=== PATIENT | female | born 1990 | race Caucasian/White ===

== ENCOUNTER → 2018-01-25 11:59 | Outpatient (CLI) | payer BC, SELFPAY ==
[2018-01-25 12:51] LABS: Prolactin 27.2 ng/mL; Thyroid Stim Hormone (TSH) 2.12 uIU/mL (0.358-3.74)
[2018-01-26 08:45] LABS: Progesterone Level 3.89 ng/mL (See Comment)
[2018-01-27 08:03] LABS: HPV Reflexed? NOT INDICATED
== END ==
PROVIDERS: Visit Provider Obstetrics & Gynecology
DX: Z12.4 Encounter for screening for malignant neoplasm of cervix (principal); N92.6 Irregular menstruation, unspecified
CPT/HCPCS: 36415; 84144; 84146; 84443; 88175; G0145

== ENCOUNTER → 2018-02-27 09:01 | Outpatient (CLI) | payer BC, SELFPAY ==
[2018-02-28 08:42] LABS: Progesterone Level 30.51 ng/mL (See Comment)
== END ==
PROVIDERS: Visit Provider Obstetrics & Gynecology
DX: N97.9 Female infertility, unspecified (principal)
CPT/HCPCS: 36415; 84144

== ENCOUNTER → 2018-03-23 16:15 | Outpatient (CLI) | payer BC, SELFPAY ==
[2018-03-23 19:11] LABS: Chlamydia Trachomatis by PCR Negative (Negative); Neisserai gonorrhoeae by PCR Negative (Negative); Probe Check PASS; Sample Adequacy Control PASS; Specimen Processing Control PASS
== END ==
PROVIDERS: Visit Provider Obstetrics & Gynecology
DX: Z11.3 Encounter for screening for infections with a predominantly sexual mode of transmission (principal)
CPT/HCPCS: 87491; 87591

== ENCOUNTER → 2018-04-05 10:07 | Outpatient (CLI) | payer BC, SELFPAY ==
[2018-04-05 10:39] LABS: Color, Urine Yellow (Yellow); Glucose, Dipstick Normal (Normal); Ketone-Dipstick Negative (Negative); Leukocyte Esterase-Dipstick 25 /ul (Negative); Nitrite-Dipstick Negative (Negative); Occult Blood-Urine Negative /ul (Negative); Protein-Dipstick 15 mg/dl (Negative); Urine Bilirubin Dipstick Negative (Negative); Urine Clarity Sl. Cloudy (Clear); Urine Urobilinogen Normal (Normal)
[2018-04-05 11:13] LABS: Amphetamine Urine VISTA NEGATIVE (<1000 ng/mL); Barbiturate Urine VISTA NEGATIVE (< 200 ng/mL); Benzodiazepine Urine VISTA NEGATIVE (< 200 ng/mL); Cocaine Urine VISTA NEGATIVE (< 300 ng/mL); Ecstacy Urine VISTA NEGATIVE (< 500 ng/mL); Methadone Urine VISTA NEGATIVE (< 300 ng/mL); PCP Urine VISTA NEGATIVE (< 25 ng/mL); THC Urine VISTA NEGATIVE (< 50 ng/mL); Vista UDS pH Range 6
[2018-04-05 11:42] LABS: Absolute Lymphocyte Count 1.64 X10^3/ul (0.83-4.51); Absolute Neutrophil Count 5.1 X10^3/uL (2.0-7.7); Basophil# 0.01 X10^3/uL; Basophil% 0.1 % (0-1); Eosinophil# 0.02 X10^3/uL; Eosinophils% 0.3 % (0-5); Hematocrit 36.8 % (37-47); Hemoglobin 12.2 g/dl (12.0-15.0); Lymphocyte # 1.64 X10^3/ul (4.0); Lymphocyte % 23.6 % (19-41); Mean Corp Hgb Conc 33.2 g/gl (32-36); Mean Corpuscular Hgb 27.8 pg (27.0-32.0); Mean Corpuscular Volume 83.8 fL (81-99); Mean Platelet Vol. 9.8 fl (6.2-12.0); Monocyte# 0.24 X10^3/uL; Monocyte% 3.4 % (0-10); Neutrophil # 5.05 X10^3/uL (2.7-7.7); Neutrophil % 72.6 % (47-70); Platelet Count 287 K/mm3 (150-450); RBC Distribution Width CV 12.4 % (11.6-14.6); RBC Distribution Width SD 37.8 fl (35.1-43.9); Red Blood Count 4.39 M/mm3 (4.2-5.4)
[2018-04-05 11:51] LABS: POSITIVE COUNT NO; POSITIVE DIFFERENTIAL NO; POSITIVE MORPHOLOGY NO
[2018-04-05 12:21] LABS: Thyroid Stim Hormone (TSH) 2.07 uIU/mL (0.358-3.74)
[2018-04-06 03:42] LABS: Prenatal RPR NONREACTIVE (NONREACTIVE)
[2018-04-06 11:30] LABS: HEPATITIS B SURFACE AG Negative (Negative); Hep C Antibodies <0.1 s/co ratio (0.0-0.9)
[2018-04-06 12:32] LABS: HIV - WCH Non-Reactive (Nonreactive); Rubella IgG 40.6 IU/mL
== END ==
PROVIDERS: Visit Provider Obstetrics & Gynecology
DX: Z34.81 Encounter for supervision of other normal pregnancy, first trimester (principal)
CPT/HCPCS: 36415; 80307; 81002; 84443; 85025; 86703; 86762; 86803; 87340

== ENCOUNTER → 2018-06-27 10:07 | Outpatient (CLI) | payer BC, SELFPAY ==
[2018-06-27 10:53] LABS: Hematocrit 33.5 % (37-47); Hemoglobin 11.3 g/dl (12.0-15.0); Mean Corp Hgb Conc 33.7 g/gl (32-36); Mean Corpuscular Hgb 28.1 pg (27.0-32.0); Mean Corpuscular Volume 83.3 fL (81-99); Mean Platelet Vol. 9.2 fl (6.2-12.0); Platelet Count 259 K/mm3 (150-450); RBC Distribution Width CV 13.3 % (11.6-14.6); RBC Distribution Width SD 40.5 fl (35.1-43.9); Red Blood Count 4.02 M/mm3 (4.2-5.4); White Blood Count 7.5 K/mm3 (4.4-11.0)
[2018-06-27 11:00] LABS: Scan Indicated on CBC? Y/N NO
[2018-06-27 11:09] LABS: International Normalized Ratio 1.1; Prothrombin Time (Protime)PT. 13.7 SECONDS (11.7-14.9)
[2018-06-27 11:16] LABS: AST(SGOT) 17 U/L (15-37); Alanine Aminotransfer ALT/SGPT 35 U/L (13-56); Creatinine, Serum 0.58 mg/dL (0.55-1.02); EST Glomerular Filtration Rate 131 mL/min (>60); Est Glom Filt Rate - Afr Amer 159 mL/min (>60); Uric Acid 3.2 mg/dL (2.6-6.0)
--- OUTSIDE RECORDS SUMMARY | 2018-08-22 18:34 | XMS RPT_ITS ---
:1990 Author Organization OHIP Care Team Providers Name Role Phone Afshin Aviles Attending Unavailable Afshin Aviles Attending Unavailable Afshin Aviles Attending Unavailable Afshin Aviles Attending Unavailable Kaylee Hood Attending Unavailable Kaylee Hood Attending Unavailable PROBLEMS PROBLEMS DATE TYPE CONDITION / CODE ATTENDING STATUS SOURCE 06/29/2018 Unknown Z34.82 - Encounter Kaylee Hood Anshul Wright for supervision of Community other normal Hospital , second Repository trimester / Z34.82(ICD-10) 04/05/2018 Unknown Z34.81 - Encounter Afshin Aviles Anshul Wright for supervision of Community other normal Hospital , first Repository trimester / Z34.81(ICD-10) 03/23/2018 Unknown Z11.3 - Encounter SinaderekAfshin for screening for Community infections with a Hospital predominantly Repository sexual mode of transmission / Z11.3(ICD-10) 02/27/2018 Unknown 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, Community unspecified / Hospital N97.9(ICD-10) Repository 01/25/2018 Unknown N92.6 - Irregular SinaderekAfshin menstruation, Community unspecified / Hospital N92.6(ICD-10) Repository 01/25/2018 Unknown Z12.4 - Encounter Afshin Aviles for screening for Community malignant neoplasm Hospital of cervix / Repository Z12.4(ICD-10) PROCEDURES PROCEDURES No Procedure Records FoundRESULTS RESULTS PROTEIN, URINE 24HR Collected: 06/29/2018 Status: F Source: ADRIANA 8:05 AM [facility] REPOSITORY TYPE CODE TESTS RESULT OUT OF RANGE REFERENCE UNITS LAB L501.1850 24.0 HOURS Normal UR COLLECT 24.0 TIME LAB L501.1875 mL Normal UR TOTAL 925 VOLUME LAB L501.1900 <11.9 mg/dL Normal URINE PROTEIN 8.5 LAB L501.1925 <150 MG/24HR mg/24HR Normal 24hr UR 78.6 PROTEIN Performed By: #### L500.9000 #### [facility] [place], [address] CBC-COMPLETE BLOOD CNT Collected: 06/27/2018 Status: F Source: ADRIANA NO DIFF 10:17 AM [facility] REPOSITORY TYPE CODE TESTS RESULT OUT OF RANGE REFERENCE UNITS LAB L100.1000 4.4-11.0 K/mm3 Normal WBC 7.5 LAB L100.1200 4.2-5.4 M/mm3 Low RBC 4.02 LAB L100.1300 12.0-15.0 g/dl Low HGB 11.3 LAB L100.1400 37-47 % Low HCT 33.5 LAB L100.1500 81-99 fL Normal MCV 83.3 LAB L100.1600 27.0-32.0 pg Normal MCH 28.1 LAB L100.1700 32-36 g/gl Normal MCHC 33.7 LAB L100.1810 11.6-14.6 % Normal RDW CV 13.3 LAB L100.1820 35.1-43.9 fl Normal RDW SD 40.5 LAB L100.1900 150-450 K/mm3 Normal PLT 259 LAB L100.2000 6.2-12.0 fl Normal MPV 9.2 Performed By: #### L100.0500 #### [facility] [address] [facility] [place], [place], [address] PROTHROMBIN TIME W/INR Collected: 06/27/2018 Status: F Source: [place] 10:17 AM [facility] REPOSITORY TYPE CODE TESTS RESULT OUT OF RANGE REFERENCE UNITS LAB L300.4150 11.7-14.9 SECONDS Normal PROTIME 13.7 LAB L300.4200 Normal INR 1.1 Performed By: #### L300.3900, L300.4310 #### [facility] [address] [place], [place], [address] PARTIAL THROMBOPLAST Collected: 06/27/2018 Status: F Source: [place] TIME 10:17 AM [facility] REPOSITORY TYPE CODE TESTS RESULT OUT OF RANGE REFERENCE UNITS LAB L300.4310 24.1-36.2 Seconds Normal PTT 29.0 Performed By: #### L300.3900, L300.4310 #### [facility] [address] [place], [address] SERUM CREATININE AND Collected: 06/27/2018 Status: F Source: [place] GFR 10:17 AM [facility] REPOSITORY TYPE CODE TESTS RESULT OUT OF RANGE REFERENCE UNITS LAB L501.1100 0.55-1.02 mg/dL Normal 0.58 CREAT,SERUM Result Comment: The validity of the calculated GFR AND GFRAA in patients over 70 years has not been determined. Clinical correlation is essential. LAB L501.1110 >60 mL/min Normal EST GFR 131 Result Comment: Non- GFR Calc LAB L501.1115 >60 mL/min Normal EST GFR - AA 159 Result Comment: GFR Calc Performed By: #### L501.1105, L501.1400, L501.4100, L501.4405 #### [facility] [address] [place], [address] URIC ACID Collected: 06/27/2018 Status: F Source: ADIRANA 10:17 AM [facility] REPOSITORY TYPE CODE TESTS RESULT OUT OF RANGE REFERENCE UNITS LAB L501.1400 2.6-6.0 mg/dL Normal URIC 3.2 Result Comment: The drugs N-Acetylcysteine and Metamizole may falsely depress this assay. Performed By: #### L501.1105, L501.1400, L501.4100, L501.4405 #### [facility] [address] [place], [address] AST(SGOT) Collected: 06/27/2018 Status: F Source: ADRIANA 10:17 AM [facility] REPOSITORY TYPE CODE TESTS RESULT OUT OF RANGE REFERENCE UNITS LAB L501.4100 15-37 U/L Normal AST 17 Performed By: #### L501.1105, L501.1400, L501.4100, L501.4405 #### [facility] [address] [place], [address] ALANINE AMINOTRANSFERAS Collected: 06/27/2018 Status: F Source: ADRIANA (SGPT) 10:17 AM [facility] REPOSITORY TYPE CODE TESTS RESULT OUT OF RANGE REFERENCE UNITS LAB L501.4405 13-56 U/L Normal ALT 35 Performed By: #### L501.1105, L501.1400, L501.4100, L501.4405 #### [facility] [address] [place], [address] URINE DRUG SCREEN Collected: 04/05/2018 Status: F Source: ADRIANA (VISTA) 10:09 AM [facility] REPOSITORY Order Comment: List of Drugs Taken or Suspected? UNK TYPE CODE TESTS RESULT OUT OF RANGE REFERENCE UNITS LAB L505.0075 TO BE Normal CONFIRMED Result Comment: CONFIRMATORY TESTING FOR ALL POSITIVE URINE DRUG SCREEN RESULTS WILL ONLY BE SENT OUT UPON PHYSICIAN ORDER. VISTA Urine Drug Screen methods provide only preliminary analytical test results. A more specific alternate chemical method must be used in order to obtain a confirmed analytical result. Gas chromatography/mass spectrometery (GC/MS) is the preferred confirmatory method. Clinical consideration and professional judgement should be applied to any drug of abuse test result, particularly when preliminary positive results are used. URINE TCA TESTING MUST BE ORDERED SEPARATELY. USE TEST MNEMONIC: [facility]CA LAB L505.5005 VISTA UDS PH 6 Normal LAB L505.5015 <1000 ng/mL AMPHETAMINES Normal NEGATIVE LAB L505.5025 < 200 ng/mL BARBITIURATES Normal NEGATIVE LAB L505.5035 < 200 ng/mL BENZODIAZIPINE Normal NEGATIVE LAB L505.5045 < 300 ng/mL COCAINE Normal NEGATIVE LAB L505.5055 < 500 ng/mL ECSTACY Normal NEGATIVE LAB L505.5065 < 300 ng/mL METHADONE Normal NEGATIVE LAB L505.5075 < 300 ng/mL OPIATES Normal NEGATIVE LAB L505.5085 < 25 ng/mL PCP Normal NEGATIVE LAB L505.5095 < 50 ng/mL THC Normal NEGATIVE Performed By: #### L505.5000 #### [facility] [place], [address] URINALYSIS, ROUTINE Collected: 04/05/2018 Status: F Source: ADRIANA (DIPSTICK) 10:09 AM [facility] REPOSITORY Order Comment: How was Urine Obtained? CLEAN CATCH TYPE CODE TESTS RESULT OUT OF RANGE REFERENCE UNITS LAB L400.3000 Yellow COLOR Normal Yellow LAB L400.3050 Clear Normal CLARITY Sl. Cloudy LAB L400.3200 Normal mg/dl Normal GLUCOSE, UR Normal LAB L400.3300 Negative mg/dL Normal BILIRUBIN URINE Negative LAB L400.3400 Negative mg/dl Normal KETONE UR Negative LAB L400.3465 1.002-1.030 Normal SP.GR. DIPSTX 1.020 LAB L400.3550 5.0 - 8.0 pH UR Normal 6.0 LAB L400.3600 Negative mg/dl High PROT 15 DIPSTX LAB L400.3700 Normal mg/dl Normal UROBILI Normal LAB L400.3750 Negative Normal NITRITE UR Negative LAB L400.3780 Negative /ul Normal OCCULT BLOOD-UR Negative LAB L400.3800 Negative /ul High LEUK 25 ESTERASE Performed By: #### L400.2010 #### [facility] [address] [place], [address] CBC W/DIFF, AUTOMATED Collected: 04/05/2018 Status: F Source: [place] 10:09 AM [facility] REPOSITORY TYPE CODE TESTS RESULT OUT OF RANGE REFERENCE UNITS LAB L100.1000 4.4-11.0 K/mm3 Normal WBC 7.0 LAB L100.1200 4.2-5.4 M/mm3 Normal RBC 4.39 LAB L100.1300 12.0-15.0 g/dl Normal HGB 12.2 LAB L100.1400 37-47 % Low HCT 36.8 LAB L100.1500 81-99 fL Normal MCV 83.8 LAB L100.1600 27.0-32.0 pg Normal MCH 27.8 LAB L100.1700 32-36 g/gl Normal MCHC 33.2 LAB L100.1810 11.6-14.6 % Normal RDW CV 12.4 LAB L100.1820 35.1-43.9 fl Normal RDW SD 37.8 LAB L100.1900 150-450 K/mm3 Normal PLT 287 LAB L100.2000 6.2-12.0 fl Normal MPV 9.8 LAB L100.2100 47-70 % High NEUT% 72.6 LAB L100.2200 19-41 % Normal LY% 23.6 LAB L100.2300 0-10 % Normal MONO% 3.4 LAB L100.2400 0-5 % Normal EO% 0.3 LAB L100.2500 0-1 % Normal BASO% 0.1 LAB L100.2550 0.0-0.9 % Normal IM GRAN % 0.000 Result Comment: IG% - Immature Granulocytes (promyelocytes, myelocytes and metamyelocytes) > 1% indicates that a LEFT SHIFT is Present. LAB L100.2620 2.0-7.7 X10 3/uL Normal Absolute Neut 5.1 LAB L100.2720 0.83-4.51 X10 3/ul Normal Absolute Lymph 1.64 Performed By: #### L100.0100 #### [facility] [address] [place], [address] THYROID STIM HORMONE Collected: 04/05/2018 Status: F Source: ADRIANA (TSH) 10:09 AM [facility] REPOSITORY TYPE CODE TESTS RESULT OUT OF RANGE REFERENCE UNITS LAB L501.9520 0.358-3.74 uIU/mL Normal TSH 2.07 Performed By: #### L501.9520 #### [facility] [address] [place] [address] [place], [address] T AND S-NO Collected: 04/05/2018 Status: F Source: ADRIANA CHARGE W/PNP 10:09 AM [facility] REPOSITORY Order Comment: Reason for Type AND Screen/Red Cells: Surgery? N TYPE CODE TESTS RESULT OUT OF RANGE REFERENCE UNITS LAB B10.0800 A Normal BLOOD POSITIVE TYPE GEL LAB B100.4050 Normal Ab SCREEN NEGATIVE GEL Performed By: #### B100.7550 #### [facility] [address] [place] [address], [address] RPR Collected: 04/05/2018 Status: F Source: ADRIANA 10:09 AM [facility] REPOSITORY TYPE CODE TESTS RESULT OUT OF REFERENCE UNITS RANGE LAB L700.5100 NONREACTIVE Normal RPR NONREACTIVE Performed By: #### L700.5100 #### [facility] [address] [place], [place] [address]C[place], [address] HEPATITIS B SURFACE Collected: 04/05/2018 Status: F Source: ADRIANA AG 10:09 AM [facility] REPOSITORY TYPE CODE TESTS RESULT OUT OF RANGE REFERENCE UNITS LAB L3100.0400 Negative Normal HB Negative SURF AG Result Comment: Performed at: - [facility], [place], [place] [id number] Helmet Hat Sweatband Puncher: William Davison PhD, Phone: [phone] Performed By: #### L3100.0390, L3100.0625 #### [facility] (refer to report for specific site) refer to report for address and phone number HEPATITIS C ANTIBODIES Collected: 04/05/2018 Status: F Source: ADRIANA 10:09 AM [facility] REPOSITORY TYPE CODE TESTS RESULT OUT OF RANGE REFERENCE UNITS LAB L3100.0650 0.0-0.9 s/co ratio Normal HEP C AB <0.1 Result Comment: Negative: < 0.8 Indeterminate: 0.8 - 0.9 Positive: > 0.9 The CDC recommends that a positive HCV antibody result be followed up with a HCV Nucleic Acid Amplification test (682156). Performed By: #### L3100.0390, L3100.0625 #### [facility] (refer to report for specific site) refer to report for address and phone number RUBELLA IGG Collected: 04/05/2018 Status: F Source: ADRIANA 10:09 AM [facility] REPOSITORY TYPE CODE TESTS RESULT OUT OF RANGE REFERENCE UNITS LAB L509.4000 IU/mL Normal Rubella IgG 40.6 Result Comment: Antibody results Interpretation of Immune Status < 5 IU/ml Presumed Non-immune 5 - < 10 IU/ml Equivocal > or = 10 IU/ml Presumed Immune Performed By: #### L509.4000, L3890.6005 #### [facility] [address] [place], [address] HIV - W[facility] Collected: 04/05/2018 Status: F Source: ADRIANA 10:09 AM [facility] REPOSITORY TYPE CODE TESTS RESULT OUT OF RANGE REFERENCE UNITS LAB L3890.6005 Nonreactive Normal HIV - [facility] Non-Reactive Performed By: #### L509.4000, L3890.6005 #### [facility] [address] [place], [address] CT/NG W[facility] BY PCR Collected: 03/23/2018 Status: F Source: ADRIANA 2:30 PM [facility] REPOSITORY TYPE CODE TESTS RESULT OUT OF RANGE REFERENCE UNITS LAB L8200.2100 Negative Normal Chlam Negative Trac PCR LAB L8200.2200 Negative Normal NG by Negative PCR Performed By: #### L8200.2000 #### [facility] [address] [place], [address] PROGESTERONE LEVEL Collected: 02/27/2018 Status: F Source: ADRIANA 9:08 AM [facility] REPOSITORY Order Comment: TODAY IS CYCLE . TYPE CODE TESTS RESULT OUT OF REFERENCE UNITS RANGE LAB L509.4001 See Comment ng/mL Progesterone Normal 30.51 Result Comment: Progesterone Reference Table: UNITS Female: Follicular 0.15 - 1.40 ng/mL Luteal 3.34 - 25.56 ng/mL Mid-luteal 4.44 - 28.03 ng/mL Postmenopausal 0.0 - 0.73 ng/mL : 1st Trimester 11.22 - 90.00 ng/mL 2nd Trimester 25.55 - 89.40 ng/mL 3rd Trimester 48.40 -422.50 ng/mL Performed By: #### L509.4001 #### [facility] [address] [facility] [place], [address] THYROID STIM HORMONE Collected: 01/25/2018 Status: F Source: [place] (TSH) 12:04 PM [facility] REPOSITORY TYPE CODE TESTS RESULT OUT OF RANGE REFERENCE UNITS LAB L501.9520 0.358-3.74 uIU/mL Normal TSH 2.12 Performed By: #### L501.9520, L3100.5420 #### [facility] [address] [facility] [facility] [address] PROLACTIN Collected: 01/25/2018 Status: F Source: [place] 12:04 PM [facility] REPOSITORY TYPE CODE TESTS RESULT OUT OF RANGE REFERENCE UNITS LAB L3100.5420 ng/mL Normal PROLACTIN 27.2 Result Comment: NORMAL REFERENCE RANGES FEMALE NON- 2.2 - 30.3 ng/mL 8.1 - 347.6 ng/mL POST-MENOPAUSAL 0.7 - 31.5 ng/mL MALE 2.5 - 17.4 ng/mL NEW TEST METHOD AND REFERENCE RANGES DECEMBER 19, 2011 Performed By: #### L501.9520, L3100.5420 #### [facility] [address] [place], [address] PROGESTERONE LEVEL Collected: 01/25/2018 Status: F Source: [place] 12:04 PM [facility] REPOSITORY TYPE CODE TESTS RESULT OUT OF REFERENCE UNITS RANGE LAB L509.4001 See Comment ng/mL Progesterone Normal 3.89 Result Comment: Progesterone Reference Table: UNITS Female: Follicular 0.15 - 1.40 ng/mL Luteal 3.34 - 25.56 ng/mL Mid-luteal 4.44 - 28.03 ng/mL Postmenopausal 0.0 - 0.73 ng/mL : 1st Trimester 11.22 - 90.00 ng/mL 2nd Trimester 25.55 - 89.40 ng/mL 3rd Trimester 48.40 -422.50 ng/mL Performed By: #### L509.4001 #### [facility] [address] [place], [place], [address] PAP IG W/REFLEX HR Collected: 01/25/2018 Status: F Source: [place]RIANA HPV APTIMA 11:30 AM [facility] REPOSITORY Order Comment: CYTOLOGY INFORMATION: - CLINICAL INFORMATION: - DATE LMP/MENOPAUSE: LMP - COLLECTION VIAL: Thin Prep Vial - PLASTERER SPRAY GUN SOURCE: CERVICAL/ENDOCERVICAL - COLLECTION TECHNIQUE: BRUSH/SPATULA Specimen Comment: [id number] Specimen Comment: No. of containers..01 ThinPrep Vial TYPE CODE TESTS RESULT OUT OF RANGE REFERENCE UNITS LAB L7400.0800 . Normal DIAGN Comment Result Comment: NEGATIVE FOR INTRAEPITHELIAL LESION AND MALIGNANCY. LAB L7400.0900 . Normal ADEQ Comment Result Comment: Satisfactory for evaluation. Endocervical and/or squamous metaplastic cells (endocervical component) are present. LAB L7400.1400 . Normal PERFORM Comment Result Comment: Claudy Balbuena, Analysis Intern (ASCP) LAB L7400.2575 . Normal TEST METHOD Comment Result Comment: This liquid based ThinPrep(R) pap test was screened with the use of an image guided system. LAB L7400.2600 . Normal . COMM LAB L7400.2700 . Normal PAPSMR Comment Result Comment: The Pap smear is a screening test designed to aid in the detection of premalignant and malignant conditions of the uterine cervix. It is not a diagnostic procedure and should not be used as the sole means of detecting cervical cancer. Both false-positive and false-negative reports do occur. LAB L7400.2800 . Normal HPV RFLX Comment Result Comment: The HPV DNA reflex criteria were not met with this specimen result therefore, no HPV testing was performed. Performed at: [address] [id number] Helmet Hat Sweatband Puncher: Nuria David MD, Phone: [phone] Performed By: #### L1100.0039 #### [facility] (refer to report for specific site) refer to report for address and phone number ALLERGIES ALLERGIES No Allergies Records FoundENCOUNTERS ENCOUNTERS ADMIT/DISCHARGE ACCOUNT ADMITTING ENCOUNTER LOCATION SOURCE NUMBER CLASS 06/29/2018 [id number] [facility] [place] [facility] 5 [facility] ing:[facility] Repository 06/27/2018 [id number] [facility] [place] [facility] 8 [facility] ing:WOBLAB Repository 04/05/2018 [id number] [facility] [place] 0 [facility] ing:WOBLAB Repository 03/23/2018 [id number] Ambulatory [facility] 0 [facility] ing:[facility] Repository 02/27/2018 [id number] [facility] [place] [facility] 0 [facility] ing:WOBLAB Repository 01/25/2018 [id number] Ambulatory [facility] Adri[facility] 5 [facility] ing:WOBLAB Repository PAYERS PAYERS ENCOUNTER GUARANTOR PAYER SUBSCRIBER SOURCE 06/29/2018 MARIO Stone Primary YULIANA A Adriana [id number] [facility] Insurance:ANTHE[place] Number: [facility] [address]Nyy: 330 [id number] Repository [phone] () denis Date:[id number] [address] [place] [address] 25778VI: 06/29/2018 Secondary NOT GIVENUNK Adriana Insurance:SELF PAY [facility] Number: Effective Repository Date:2018-06-29 06/27/2018 MARIO Stone Primary YULIANA A [place] [id number] [facility] [place] Number: [facility] [address]Khj: 330 [id number] Repository [phone] () denis Date:[id number] [address] [place] [address]94[address]CK: 06/27/2018 Secondary NOT GIVENUNK Adriana Insurance:SELF PAY [facility] Number: Effective Repository Date:2018-06-27 04/05/2018 MARIO Stone Primary YULIANA A Adriana [id number] [place] Insurance:ANTHEMPolic [place] Number: Hospital [address]Btz: (330) [id number] Repository [phone] () denis Date:1918-44-34XH [address] [place] [address] 15691MF: 04/05/2018 Secondary NOT GIVENUNK Adriana Insurance:SELF PAY [facility] Effective Repository Date:2018-04-05 03/23/2018 MARIO N Primary YULIANA A [place] [id number] [place] Insurance:ANTHE[place]olic [place] Number: Hospital [id number]: (330) [id number] Repository [phone] () denis Date:8094-97-87IZ [id number] [place] [address] 22319BA: 03/23/2018 Secondary NOT GIVENUNK [place] Insurance:SELF PAY [facility] Hospital Number: Effective Repository Date:2018-03-23 02/27/2018 MARIO N Primary YULIANA Adriana [id number] [place] Insurance:ANTHE[employer]olic [place] Number: Hospital [id number]: (330) [id number] Repository [phone] () denis Date:6796-95-09PR [id number] [place] [address] 04244RS: 02/27/2018 Secondary NOT GIVENUNK [place] Insurance:SELF PAY [facility] Number: Effective Repository Date:2018-02-27 01/25/2018 MARIO N Primary YULIANA [place] [id number] [place] Insurance:ANTHE[employer]olic [place] Number: Hospital [address]Eyc: (330) [id number] Repository [phone] () ednis Date:5485-61-77PF [id number] [place] [address] 11480SE: 01/25/2018 Secondary NOT GIVENUNK [place] Insurance:SELF PAY [facility] Hospital Number: Effective Repository Date:2018-01-25
== END ==
PROVIDERS: Visit Provider Obstetrics & Gynecology
DX: O13.9 Gestational [pregnancy-induced] hypertension without significant proteinuria, unspecified trimester (principal)
CPT/HCPCS: 36415; 82565; 84450; 84460; 84550; 85027; 85610; 85730

== ENCOUNTER → 2018-06-29 08:44 | Outpatient (CLI) | payer BC, SELFPAY ==
[2018-06-29 09:14] LABS: 24 Hour Urine Protein 78.6 mg/24HR (<150 MG/24HR); 24HR. UA Prot. Total Volume 925 mL; Urine Protein (24 Hour) 8.5 mg/dL (<11.9)
--- OUTSIDE RECORDS SUMMARY | 2018-08-24 03:30 | XMS RPT_ITS ---
:1990 Author Organization OHIP Care Team Providers Name Role Phone Afshin Aviles Attending Unavailable Kaylee Hood Attending Unavailable Kaylee Hood Attending Unavailable Afshin Aviles Attending Unavailable Afshin Aviles Attending Unavailable Afshin Aviles Attending Unavailable PROBLEMS PROBLEMS DATE TYPE CONDITION [...] 06/29/2018 Status: F Source: ADRIANA 8:05 AM [facility] REPOSITORY TYPE CODE TESTS RESULT OUT OF RANGE REFERENCE UNITS LAB L501.1850 24.0 HOURS Normal UR COLLECT 24.0 TIME LAB L501.1875 mL Normal UR TOTAL 925 VOLUME LAB L501.1900 <11.9 mg/dL Normal URINE PROTEIN 8.5 LAB L501.1925 <150 MG/24HR mg/24HR Normal 24hr UR 78.6 PROTEIN Performed By: #### L500.9000 #### [facility] [place], [address] CBC-COMPLETE BLOOD CNT Collected: 06/27/2018 Status: F Source: ADRIANA NO DIFF 10:17 AM [facility] REPOSITORY TYPE CODE TESTS RESULT OUT OF [...] MPV 9.2 Performed By: #### L100.0500 #### [facility] [address] [facility] [place], [place], [id number] PROTHROMBIN TIME W/INR Collected: 06/27/2018 Status: F Source: HOMEWORTH 10:17 AM [facility] REPOSITORY TYPE CODE TESTS RESULT OUT OF RANGE REFERENCE UNITS LAB L300.4150 11.7-14.9 SECONDS Normal PROTIME 13.7 LAB L300.4200 Normal INR 1.1 Performed By: #### L300.3900, L300.4310 #### [facility] [address] [place], [place], [id number] PARTIAL THROMBOPLAST Collected: 06/27/2018 Status: F Source: HOMEWORTH TIME 10:17 AM [facility] REPOSITORY TYPE CODE TESTS RESULT OUT OF RANGE REFERENCE UNITS LAB L300.4310 24.1-36.2 Seconds Normal PTT 29.0 Performed By: #### L300.3900, L300.4310 #### [facility] [address] [facility] [place], [address] SERUM CREATININE AND Collected: 06/27/2018 Status: F Source: HOMEWORTH GFR 10:17 AM [facility] REPOSITORY TYPE CODE TESTS RESULT OUT OF [...] By: #### L501.1105, L501.1400, L501.4100, L501.4405 #### [facility] [address] [place], [address] URIC ACID Collected: 06/27/2018 Status: F Source: ADRIANA 10:17 AM [facility] REPOSITORY TYPE CODE TESTS RESULT OUT OF RANGE REFERENCE UNITS LAB L501.1400 2.6-6.0 mg/dL Normal URIC 3.2 Result Comment: The drugs N-Acetylcysteine and Metamizole may falsely depress this assay. Performed By: #### L501.1105, L501.1400, L501.4100, L501.4405 #### [facility] [address] [place], [address] AST(SGOT) Collected: 06/27/2018 Status: F Source: ADRIANA 10:17 AM [facility] REPOSITORY TYPE CODE TESTS RESULT OUT OF RANGE REFERENCE UNITS LAB L501.4100 15-37 U/L Normal AST 17 Performed By: #### L501.1105, L501.1400, L501.4100, L501.4405 #### [facility] [address] [place], [address] ALANINE AMINOTRANSFERAS Collected: 06/27/2018 Status: F Source: ADRIANA (SGPT) 10:17 AM [facility] REPOSITORY TYPE CODE TESTS RESULT OUT OF RANGE REFERENCE UNITS LAB L501.4405 13-56 U/L Normal ALT 35 Performed By: #### L501.1105, L501.1400, L501.4100, L501.4405 #### [facility] [address] [place], [address] URINE DRUG SCREEN Collected: 04/05/2018 Status: F Source: ADRIANA (VISTA) 10:09 AM [facility] REPOSITORY Order Comment: List of Drugs Taken [...] Normal NEGATIVE Performed By: #### L505.5000 #### [facility] [place], [address] URINALYSIS, ROUTINE Collected: 04/05/2018 Status: F Source: ADRIANA (DIPSTICK) 10:09 AM [facility] REPOSITORY Order Comment: How was Urine Obtained? [...] 25 ESTERASE Performed By: #### L400.2010 #### [facility] [address] [place], [address] CBC W/DIFF, AUTOMATED Collected: 04/05/2018 Status: F Source: HOMEWORTH 10:09 AM [facility] REPOSITORY TYPE CODE TESTS RESULT OUT OF [...] Lymph 1.64 Performed By: #### L100.0100 #### [facility] [address] [place], [address] THYROID STIM HORMONE Collected: 04/05/2018 Status: F Source: ADRIANA (TSH) 10:09 AM [facility] REPOSITORY TYPE CODE TESTS RESULT OUT OF RANGE REFERENCE UNITS LAB L501.9520 0.358-3.74 uIU/mL Normal TSH 2.07 Performed By: #### L501.9520 #### [facility] [address] [place] [address] [place], [address] T AND S-NO Collected: 04/05/2018 Status: F Source: ADRIANA CHARGE W/PNP 10:09 AM [facility] REPOSITORY Order Comment: Reason for Type AND Screen/Red Cells: Surgery? N TYPE CODE TESTS RESULT OUT OF RANGE REFERENCE UNITS LAB B10.0800 A Normal BLOOD POSITIVE TYPE GEL LAB B100.4050 Normal Ab SCREEN NEGATIVE GEL Performed By: #### B100.7550 #### [facility] [address] [place] [address], [address] RPR Collected: 04/05/2018 Status: F Source: ADRIANA 10:09 AM [facility] REPOSITORY TYPE CODE TESTS RESULT OUT OF REFERENCE UNITS RANGE LAB L700.5100 NONREACTIVE Normal RPR NONREACTIVE Performed By: #### L700.5100 #### [facility] [address] [place], [place] [address], [address] HEPATITIS B SURFACE Collected: 04/05/2018 Status: F Source: ADRIANA AG 10:09 AM [facility] REPOSITORY TYPE CODE TESTS RESULT OUT OF RANGE REFERENCE UNITS LAB L3100.0400 Negative Normal HB Negative SURF AG Result Comment: Performed at: - [facility], [place], [place] [id number] Is Manager: William Davison PhD, Phone: [phone] Performed By: #### L3100.0390, L3100.0625 #### [facility] (refer to report for specific site) refer to report for address and phone number HEPATITIS C ANTIBODIES Collected: 04/05/2018 Status: F Source: ADRIAAN 10:09 AM [facility] REPOSITORY TYPE CODE TESTS RESULT OUT OF RANGE REFERENCE UNITS LAB L3100.0650 0.0-0.9 s/co ratio Normal HEP C AB <0.1 Result Comment: Negative: < 0.8 Indeterminate: 0.8 - 0.9 Positive: > 0.9 The CDC recommends that a positive HCV antibody result be followed up with a HCV Nucleic Acid Amplification test (394451). Performed By: #### L3100.0390, L3100.0625 #### [facility] (refer to report for specific site) refer to report for address and phone number RUBELLA IGG Collected: 04/05/2018 Status: F Source: ADRIANA 10:09 AM [facility] REPOSITORY TYPE CODE TESTS RESULT OUT OF RANGE REFERENCE UNITS LAB L509.4000 IU/mL Normal Rubella IgG 40.6 Result Comment: Antibody results Interpretation of Immune Status < 5 IU/ml Presumed Non-immune 5 - < 10 IU/ml Equivocal > or = 10 IU/ml Presumed Immune Performed By: #### L509.4000, L3890.6005 #### [facility] [address] [place], [address] HIV - [facility] Collected: 04/05/2018 Status: F Source: ADRIANA 10:09 AM [facility] REPOSITORY TYPE CODE TESTS RESULT OUT OF RANGE REFERENCE UNITS LAB L3890.6005 Nonreactive Normal HIV - [facility] Non-Reactive Performed By: #### L509.4000, L3890.6005 #### [facility] [address] [place], [address] CT/NG [facility] BY PCR Collected: 03/23/2018 Status: F Source: ADRIANA 2:30 PM [facility] REPOSITORY TYPE CODE TESTS RESULT OUT OF RANGE REFERENCE UNITS LAB L8200.2100 Negative Normal Chlam Negative Trac PCR LAB L8200.2200 Negative Normal NG by Negative PCR Performed By: #### L8200.2000 #### [facility] [address] [facility] [facility] [place], [address] PROGESTERONE LEVEL Collected: 02/27/2018 Status: F Source: ADRIANA 9:08 AM [facility] REPOSITORY Order Comment: TODAY IS CYCLE . [...] -422.50 ng/mL Performed By: #### L509.4001 #### [facility] [address] [facility] [place], [address] THYROID STIM HORMONE Collected: 01/25/2018 Status: F Source: HOMEWORTH (TSH) 12:04 PM [facility] REPOSITORY TYPE CODE TESTS RESULT OUT OF RANGE REFERENCE UNITS LAB L501.9520 0.358-3.74 uIU/mL Normal TSH 2.12 Performed By: #### L501.9520, L3100.5420 #### [facility] [address] [facility] [facility] [address] PROLACTIN Collected: 01/25/2018 Status: F Source: HOMEWORTH 12:04 PM [facility] REPOSITORY TYPE CODE TESTS RESULT OUT OF RANGE REFERENCE UNITS LAB L3100.5420 ng/mL Normal PROLACTIN 27.2 Result Comment: NORMAL REFERENCE RANGES FEMALE NON- 2.2 - 30.3 ng/mL 8.1 - 347.6 ng/mL POST-MENOPAUSAL 0.7 - 31.5 ng/mL MALE 2.5 - 17.4 ng/mL NEW TEST METHOD AND REFERENCE RANGES DECEMBER 19, 2011 Performed By: #### L501.9520, L3100.5420 #### [facility] [address] [place], [address] PROGESTERONE LEVEL Collected: 01/25/2018 Status: F Source: HOMEWORTH 12:04 PM [facility] REPOSITORY TYPE CODE TESTS RESULT OUT OF [...] -422.50 ng/mL Performed By: #### L509.4001 #### [facility] [address] [place], [place], [address] PAP IG W/REFLEX HR Collected: 01/25/2018 Status: F Source: ADRIANA HPV APTIMA 11:30 AM [facility] REPOSITORY Order Comment: CYTOLOGY INFORMATION: - CLINICAL INFORMATION: - DATE LMP/MENOPAUSE: LMP - COLLECTION VIAL: Thin Prep Vial - SENIOR WATER/WASTEWATER ENGINEER SOURCE: CERVICAL/ENDOCERVICAL - COLLECTION TECHNIQUE: BRUSH/SPATULA Specimen Comment: [id number] Specimen Comment: No. of containers..01 ThinPrep Vial TYPE CODE TESTS RESULT OUT OF RANGE REFERENCE UNITS LAB L7400.0800 . Normal DIAGN Comment Result Comment: NEGATIVE FOR INTRAEPITHELIAL LESION AND MALIGNANCY. LAB L7400.0900 . Normal ADEQ Comment Result Comment: Satisfactory for evaluation. Endocervical and/or squamous metaplastic cells (endocervical component) are present. LAB L7400.1400 . Normal PERFORM Comment Result Comment: Claudy Balbuena, Oil Gas And Pipe Tester (ASCP) LAB L7400.2575 . Normal TEST METHOD [...] no HPV testing was performed. Performed at: [address] [id number] Is Manager: Nuria David MD, Phone: [phone] Performed By: #### L0000.3558 #### [facility] (refer to report for specific site) refer to report for address and phone number ALLERGIES ALLERGIES No Allergies Records FoundENCOUNTERS ENCOUNTERS ADMIT/DISCHARGE ACCOUNT ADMITTING ENCOUNTER LOCATION SOURCE NUMBER CLASS 06/29/2018 [id number] Ambulatory [place] Adriana 5 [facility] ing:LABSPEC Repository 06/27/2018 [id number] Ambulatory [place] Adriana 8 [facility] ing:WOBLAB Repository 04/05/2018 [id number] Ambulatory [place] Adriana 0 [facility] ing:WOBLAB Repository 03/23/2018 [id number] Ambulatory [place] Adriana 0 [facility] ing:LABSPEC Repository 02/27/2018 [id number] Ambulatory [place] Adriana 0 [facility] ing:WOBLAB Repository 01/25/2018 [id number] Ambulatory [place] Adriana 5 [facility] ing:WOBLAB Repository PAYERS PAYERS ENCOUNTER GUARANTOR PAYER SUBSCRIBER SOURCE 06/29/2018 MARIO Stone Primary YULIANA A Adriana [id number] [facility] Insurance:[place] Number: [facility] [address]Loi: 330 [id number] Repository [phone] () denis Date:2433-14-59QQ [address] [place] [address]YU: 06/29/2018 Secondary NOT GIVENUNK Adriana Insurance:SELF PAY [facility] Number: Effective Repository Date:2018-06-29 06/27/2018 MARIO Stone Primary YULIANA A [place] [id number] [facility] [place] Number: [facility] [address]Pmu: 330 [id number] Repository [phone] () denis Date:8809-89-62OJ [address] [place] [address] 25182IY: 06/27/2018 Secondary NOT GIVENUNK Adriana Insurance:SELF PAY [facility] Number: Effective Repository Date:2018-06-27 04/05/2018 MARIO Stone Primary YULIANA A [place] [id number] Insurance:ANTHEMPolic [place] Number: Hospital [id number]: (330) [id number] Repository [phone] () denis Date:8691-65-90NJ [address] [place] [address] 716[address]HL: 04/05/2018 Secondary NOT GIVENUNK Adriana Insurance:SELF PAY [facility] Number: Effective Repository Date:2018-04-05 03/23/2018 MARIO N Primary YULIANA A [place] [id number] Insurance:ANTHEMPolic [place] Number: Hospital [id number]: (330) [id number] Repository [phone] () denis Date:7533-59-56MY [id number] [place] [address]FT: 03/23/2018 Secondary NOT GIVENUNK [place] Insurance:SELF PAY [facility] Number: Effective Repository Date:2018-03-23 02/27/2018 MARIO N Primary YULIANA Adri[place] [id number] Insurance:ANTHEMPolic [place] Number: Hospital [id number]: (330) [id number] Repository [phone] () denis Date:9122-76-99JR [id number] [place] [address] 53[address]EZ: 02/27/2018 Secondary NOT GIVENUNK [place] Insurance:SELF PAY [facility] Number: Effective Repository Date:2018-02-27 01/25/2018 MARIO N Primary YULIANA [place] [id number] Insurance:ANTHEMPolic [place] Number: Hospital [id number]: (330) [id number] Repository [phone] () denis Date:8505-02-52VL [id number] [place] [address] 14683XN: 01/25/2018 Secondary NOT GIVENUNK [place] Insurance:SELF PAY [facility] Number: Effective Repository Date:2018-01-25
== END ==
PROVIDERS: Visit Provider Obstetrics & Gynecology
DX: Z34.82 Encounter for supervision of other normal pregnancy, second trimester (principal)
CPT/HCPCS: 81050; 84156

== ENCOUNTER → 2018-08-23 10:31 | Outpatient (CLI) | payer BC, SELFPAY ==
[2018-08-23 13:03] LABS: Hematocrit 34.3 % (37-47); Hemoglobin 11.4 g/dl (12.0-15.0); Mean Corp Hgb Conc 33.2 g/gl (32-36); Mean Corpuscular Hgb 28.8 pg (27.0-32.0); Mean Corpuscular Volume 86.6 fL (81-99); Platelet Count 282 K/mm3 (150-450); RBC Distribution Width SD 40.1 fl (35.1-43.9); Red Blood Count 3.96 M/mm3 (4.2-5.4); White Blood Count 7.5 K/mm3 (4.4-11.0)
[2018-08-23 13:05] LABS: Scan Indicated on CBC? Y/N NO
[2018-08-23 13:10] LABS: Glucose Challenge Gest 1H 50g 97 mg/dL (70-140)
== END ==
PROVIDERS: Visit Provider Obstetrics & Gynecology
DX: Z34.83 Encounter for supervision of other normal pregnancy, third trimester (principal)
CPT/HCPCS: 36415; 82950; 85027

== ENCOUNTER → 2018-10-17 11:14 | Outpatient (CLI) | payer BC, SELFPAY | PROVIDERS: Visit Provider Obstetrics & Gynecology | DX: Z36.85 Encounter for antenatal screening for Streptococcus B (principal) | CPT/HCPCS: 87077; 87081; 87186 ==

== ENCOUNTER → 2018-11-02 | Outpatient (CLI) | payer BC, SELFPAY ==
[2018-11-02 10:33] LABS: Hemoglobin 11.7 g/dl (12.0-15.0); Mean Corp Hgb Conc 32.5 g/gl (32-36); Mean Corpuscular Hgb 27.4 pg (27.0-32.0); Mean Corpuscular Volume 84.3 fL (81-99); Mean Platelet Vol. 9.4 fl (6.2-12.0); Platelet Count 219 K/mm3 (150-450); RBC Distribution Width CV 13.2 % (11.6-14.6); RBC Distribution Width SD 40.2 fl (35.1-43.9); Red Blood Count 4.27 M/mm3 (4.2-5.4); White Blood Count 7.1 K/mm3 (4.4-11.0)
[2018-11-02 10:34] LABS: Scan Indicated on CBC? Y/N NO
[2018-11-02 10:44] LABS: Color, Urine Yellow (Yellow); Glucose, Dipstick Normal (Normal); Ketone-Dipstick 5 mg/dl (Negative); Leukocyte Esterase-Dipstick 25 /ul (Negative); Nitrite-Dipstick Negative (Negative); Occult Blood-Urine 10 /ul (Negative); Protein-Dipstick 30 mg/dl (Negative); Urine Bilirubin Dipstick Negative (Negative); Urine Clarity Sl. Cloudy (Clear); Urine Urobilinogen Normal (Normal)
[2018-11-02 10:49] LABS: International Normalized Ratio 0.9; Prothrombin Time (Protime)PT. 12.2 SECONDS (11.7-14.9)
[2018-11-02 10:50] LABS: Partial Thromboplast Time 26.1 Seconds (24.1-36.2)
[2018-11-02 10:58] LABS: AST(SGOT) 31 U/L (15-37); Alanine Aminotransfer ALT/SGPT 44 U/L (13-56); Creatinine, Serum 0.86 mg/dL (0.55-1.02); EST Glomerular Filtration Rate 82 mL/min (>60); Est Glom Filt Rate - Afr Amer 99 mL/min (>60); Uric Acid 6.2 mg/dL (2.6-6.0)
== END | disposition home or self-care (01) ==
LOC: WOBLAB 10:16
PROVIDERS: Visit Provider Obstetrics & Gynecology
DX: O13.9 Gestational [pregnancy-induced] hypertension without significant proteinuria, unspecified trimester (principal)
CPT/HCPCS: 36415; 81002; 82565; 84450; 84460; 84550; 85027; 85610; 85730

== ENCOUNTER 2018-11-05 16:00 | Inpatient (IN) | payer BC, SELFPAY ==
[2018-11-05] VITALS (16 sets, daily range): BP systolic 116–179; BP diastolic 50–106; PULSE 70–88; RESP 16–24; TEMP 36.1–37.6; O2SAT 97–100; BMI 42.0
[2018-11-05] MEDS: Lactated Ringers 1,000 ML 999 ML IV (16:30)
[2018-11-05 17:15] LABS: Absolute Lymphocyte Count 2.36 X10^3/ul (0.83-4.51); Absolute Neutrophil Count 6.8 X10^3/uL (2.0-7.7); Basophil# 0.02 X10^3/uL; Basophil% 0.2 % (0-1); Eosinophil# 0.07 X10^3/uL; Eosinophils% 0.7 % (0-5); Hematocrit 34.6 % (37-47); Hemoglobin 11.5 g/dl (12.0-15.0); Lymphocyte # 2.36 X10^3/ul (4.0); Mean Corp Hgb Conc 33.2 g/gl (32-36); Mean Corpuscular Hgb 27.5 pg (27.0-32.0); Mean Corpuscular Volume 82.8 fL (81-99); Mean Platelet Vol. 9.7 fl (6.2-12.0); Monocyte# 0.51 X10^3/uL; Monocyte% 5.2 % (0-10); Neutrophil # 6.84 X10^3/uL (2.7-7.7); Neutrophil % 69.6 % (47-70); Platelet Count 233 K/mm3 (150-450); RBC Distribution Width CV 13.2 % (11.6-14.6); RBC Distribution Width SD 39.6 fl (35.1-43.9); Red Blood Count 4.18 M/mm3 (4.2-5.4); White Blood Count 9.8 K/mm3 (4.4-11.0)
[2018-11-05 17:17] LABS: POSITIVE COUNT NO; POSITIVE DIFFERENTIAL NO; POSITIVE MORPHOLOGY NO
[2018-11-05] MEDS: Magnesium Sulfate 20 GM/500 ML BAG IV (17:20)
[2018-11-05] MEDS: Lactated Ringers 1,000 ML 150 ML IV (17:23)
[2018-11-05] MEDS: Sodium Citrate/Citric Acid 30 ML UDC PO (17:24)
[2018-11-05 17:25] LABS: Prothrombin Time (Protime)PT. 12.5 SECONDS (11.7-14.9)
[2018-11-05 17:29] LABS: Mucous, Urine 0 SEEN /hpf (<or=2+); Red Blood Cells-Urine 0 SEEN /hpf (0-5)
[2018-11-05] MEDS: Lactated Ringers 1,000 ML 100 ML IV (17:30)
[2018-11-05 17:32] LABS: AST(SGOT) 22 U/L (15-37); Alanine Aminotransfer ALT/SGPT 32 U/L (13-56); Creatinine, Serum 0.83 mg/dL (0.55-1.02); EST Glomerular Filtration Rate 86 mL/min (>60); Est Glom Filt Rate - Afr Amer 104 mL/min (>60); Estimated Creatinine Clearance 86.36 ml/min; Uric Acid 6.2 mg/dL (2.6-6.0)
[2018-11-05] MEDS: Cefazolin 2 GM in 0.9% Normal Saline 100 ML IV (17:44)
--- NOTE | 2018-11-05 17:55 | PLAC_PTH ---
PATIENT: MARIO MOREIRA LOC: WP U#:[id number] AGE/SX: 28/F ROOM: WP013 RE11/05/[address]: Dr. Dick Aviles MD : 1990 BED: 1 DIS: 11/07/2018 SPEC #: [id number] RECD: 11/05/18 21:51 STATUS: VALORIE WAGNER #: [id number] YONI: 11/05/18 17:[address]: Dick Aviles DEPT: SURGICAL PATHOLOGY RECD BY: Sung Gay Tissues: Placenta, NOS Procedures: Surgery Specimen Level V HEADER OPERATION: Primary section PRE-OP DIAGNOSIS: Preeclampsia TISSUE SUBMITTED: Placenta MICROSCOPIC DIAGNOSIS Placenta: Placental disc - third trimester placenta (359 gm). - Multiple areas of infarction (~10) with focal area of intraparenchymal hemorrhage and calcification (largest measuring 4 cm in greatest dimension). - Focal area of plaque formation, maternal surface with focal calcification. - Chronic villitis of unknown etiology. Membranes - pigment laden macrophages consistent with meconium staining. - Focal circummarginate insertion. Umbilical cord - three blood vessels and no pathologic diagnosis. SJ:diamond 11/08/18 MICROSCOPIC DESCRIPTION Slides are reviewed. GROSS DESCRIPTION SPECIMEN: PLACENTA / CLINICAL INFORMATION: A. Weight: 2.286 kg B. Gestational Age: 38 weeks C. Sex: Male PLACENTAL WEIGHT (POST FIXATION): 359 gm PLACENTAL DIMENSIONS: 15 x 14 x 3 cm PLACENTAL SHAPE: Usual ovoid PLACENTAL WEIGHT FOR GESTATIONAL AGE: Within 10-99th percentile MEMBRANES - Present A. Insertion: In one-fourth of placenta, the membranes are inserted 1 cm away from the margin. B. Site of rupture from edge: At edge of placental disc C. Color of membrane: Stanley-more D. Abnormalities: None UMBILICAL CORD - Present A. Color: Stanley-greenish and mucoidy consistent with meconium staining B. Insertion: Central C. Length: 28 cm D. Diameter: 1.2 cm E. Number of vessels: Three F. Abnormalities: None PLACENTAL DISC - Present A. Color of surface: Stanley-more B. surface abnormalities: None C. Maternal cotyledons: Intact with minimal tears D. Attached retro placental clot: No clot E. Cut surface: Dark red and spongy F. Lesions: Sections of the placenta reveal multiple (~10) stanley, indurated lesions. The largest lesion measures 4 x 4 x 1.5 cm and the second largest lesion measures 4 x 3 x 1.5 cm. The smallest lesion measures 0.3 cm in greatest dimension. G. Separate clot: Absent SECTIONS SUBMITTED: (10 cassettes) 1. Membrane roll 2. Cord, maternal end 3. Cord, end, insertion of membrane away from the margin 4. Placental disc, and maternal surfaces, lesion 5. Placental disc, and maternal surfaces, lesion 6. Placental disc, and maternal surfaces, lesion 7. Placental disc, and maternal surfaces, lesion 8. Placental disc, two lesions 9. Placental disc, two lesions 10. Placental disc, and maternal surfaces, lesion SJ:rg 11/07/18 TC:5 CPT: 00786
[2018-11-05 18:00] LABS: Color, Urine Yellow (Yellow); Glucose, Dipstick Normal (Normal); Ketone-Dipstick Negative (Negative); Leukocyte Esterase-Dipstick 25 /ul (Negative); Nitrite-Dipstick Negative (Negative); Occult Blood-Urine Negative /ul (Negative); Protein-Dipstick 30 mg/dl (Negative); Specific Gravity, Urine 1.015 (1.002-1.030); Urine Bilirubin Dipstick Negative (Negative); Urine Clarity Clear (Clear); Urine Urobilinogen Normal (Normal)
[2018-11-05] MEDS: Ketorolac 30 MG/ML Syringe IV (18:34)
--- NOTE | 2018-11-05 18:47 | OP.PCM_ITS ---
Delivery Classification: BANDAR Final VANCE: 11/13/18 Final VANCE Source: US <20 weeks Gestational age: 38 Weeks and 6 Days doctor who attended delivery (if requested by OB): Kelli Otero Indications for : Nonreassuring Status, Severe PIH, Unfav. Cervix Description of Procedure: Surgeon: Dick Aviles MD, FACOG Outside Installer Apprentice: MAXIM Maki Anesthesia: Jeb Talbot CRNA Anesthesia: Spinal with Duramorph Pre-op Diagnosis: Severe -Induced Hypertension, Nonreassuring Heart Tones, Uninducible Cervix Post-Op Diagnosis: Severe -Induced Hypertension, Nonreassuring Heart Tones, Uninducible Cervix Procedure: Primary Low Transverse Cervical Caesarean Section Findings: Viable male infant with Apgars of 8/8 in an occiput anterior presentation with clear amniotic fluid and normal three-vessel placenta; meconium stained baby and membranes; cord around neck and body loose; placenta adherent to uterus and extremely friable. Indication: This is a 28-year-old who presents for her first at 38+ weeks gestation. care has been uneventful for elevated blood pressure for which she has been on labetalol during most of the . Over the last 1-2 weeks the patient has been on modified bedrest for labile blood pressures and we have followed blood pressures closely and PIH labs closely as well. Upon presentation to the office today she was noted to have blood pressures in the 160/100 range and occasionally to the 200/130 range. Cervix was closed and thick and high. Given this, and some difficulty controlling pressures with the hypertensive protocol upon presentation to labor and delivery, and some spontaneous decelerations noted on heart tracing, it was decided to proceed with immediate section. Magnesium sulfate was also started upon presentation to labor and delivery. The patient has been counseled regarding the risk and indications of this procedure including the possibility of bleeding infection and injury to surrounding structures such as bowel bladder. All questions were answered. Procedure: Patient was taken to the operating room where after spinal anesthesia was placed, the patient was prepped and draped in usual sterile fashion and a Anthony catheter was placed. The abdomen was entered through a Pfannenstiel incision and peritoneum was entered bluntly. After developing a bladder flap on the lower uterine segment a low transverse incision was made on the uterus and head was easily delivered onto the operative field the nose mouth and oropharynx were bulb suctioned. Subsequently a viable male infant was born with Apgars of 8/8. The infant was noted to cry move all extremities vigorously on the operative field. The umbilical cord was doubly clamped and ligated and infant handed to the nursery personnel who were present for the delivery. Placenta was delivered and noted to be 3 vessels and normal except for being meconium stained. Uterus was exteriorized and remaining placental tissue was removed manually and with ring forceps and a banjo curette. The uterus was then closed in 2 layers first with running locked 0 Vicryl suture followed by a second imbricating layer with 0 Vicryl suture. 0 Vicryl suture was then used in a horizontal mattress interrupted fashion to affect final hemostasis of the uterine incision line. Normal fallopian tubes and ovaries were visualized and the uterus was returned to the pelvis. Hemostasis was noted and rectus abdominis muscles were reapproximated in the midline with interrupted Number 0 Vicryl suture in a horizontal mattress fashion. Fascia was closed with running Number 1 PDS Strata fix suture. After changing gloves subcutaneous tissue was irrigated with copious amouts of saline solution and then closed with running 3- 0 Vicryl suture. Skin was closed with 4-0 monocryl suture in a running subcuticular fashion. Steri strips, telfa, and tape were placed across the incision. The patient tolerated the procedure well and was taken to the recovery room in satisfactory condition. Sponge, needle, and instrument counts were all reportedly correct. EBL was less than 500 cc. Ancef 2 gms IV was given prior to the procedure. Spicemen to Pathology: Placenta Amniotic Fluid Description: Clear Placenta Disposition: Sent to Pathology - Meconium Stained Drain: Anthony to straight drain Fluids Replaced: Crystalloid Cord Entanglement: Around neck x 1, loose Cord Vessel Description: 3 Vessels Esitmated Blood Loss (ml): 500 cc Infant Gender: Male (1 minute): 8 (5 minute): 8 Pre-op Antibiotic Given: Ancef 2 grams IV x1 Pt instructed on risks of surgery: Bleeding, Infection, Need for Future C- Sections, Injury to surrounding structure(s) including bowel and bladder Complications: None - Admit VTE Documentation VTE Present on Admission: Yes VTE Mechan Device Prophylaxis: SCD's
[2018-11-05] MEDS: Oxytocin 30 units/NS 500 ml 30 UNITS/500 ML IV.SOLN 167 UNITS IV (18:55)
[2018-11-05] MEDS: Oxytocin 30 units/NS 500 ml 30 UNITS/500 ML IV.SOLN 334 UNITS IV (18:55)
--- NOTE | 2018-11-05 18:59 | DCINST_ITS ---
Discharge Diet: No Restrictions Discharge Activity: May not drive while taking narcotic pain medications., May Shower, May Take a Tub Bath May resume sexual activity in: 4-6 weeks Lifting Restrictions: 20 pounds Additional Activity Instructions:: Nothing in the vagina for 4-6 weeks. You may return to work/school in 6 weeks. Call your doctor if your incision/area has: Continuous Slow Oozing, Sudden Increased Bleeding, Increased Pain/ Swelling, Increased Redness, Foul Smelling Discharge Call your doctor if you observe: Fever of 101 or Higher, Inability to urinate, Inability to have a bowel movement, Using more than one pad per hour Additional Instructions: If you experience any of the following, contact your healthcare provider. * Bleeding that soaks a pad every hour for 2 hours * Unrelieved incision or abdominal pain * Swelling, redness, discharge or bleeding from your incision or episiotomy site * Your incision begins to separate * Problems urinating (including inability to urinate or burning while urinating). * Visual changes * Severe headache * Flu-like symptoms * Pain or redness in one of both of your breasts * Pain, warmth, tenderness or swelling in your legs, especially the calf area * Frequent nausea and vomiting * Symptoms of depression or anxiety If you experience any of the following, call 911 or go to the nearest Emergency Room. * Chest pain * Problems breathing * Seizure activity * Partial or complete paralysis of a body part, slurred speech, weakness or drooping of the face, or a sudden inability to walk or hold your balance Allergies/Adverse Reactions: Allergies amoxicillin Allergy (Verified 11/05/18 16:20) Rash Medications to take at Discharge Docusate Sodium [Colace] 100 mg PO BID PRN PRN #60 cap 11/05/18 Fluoxetine [Prozac] 20 mg PO DAILY 11/05/18 Labetalol [Trandate (Beta Erich)] 11/05/18 Oxycodone [Oxyir] 5 mg PO Q6H PRN PRN 7 Days #20 tab 11/05/18 Pnv No.95/Ferrous Fum/Folic AC [ Caplet] 1 each PO 11/05/18 The following prescriptions were given: Oxycodone [Oxyir] 5 mg PO Q6H PRN PRN 7 Days #20 tab PRN Reason: Severe Pain (-05/09) Docusate Sodium [Colace] 100 mg PO BID PRN PRN #60 cap PRN Reason: Constipation Follow-Up: Call to make an appointment with your doctor for an incision check in 1-2 weeks. You will also need a 6 week post- follow up appointment. Test results from this visit will be discussed in further detail at your follow- up appointment, if applicable. Please Follow Up With: Dick Aviles MD - [phone] When: Call to make an appointment for an incision check in 2 weeks.
[2018-11-05 19:09] LABS: Squamous Epithelial Cells - UA 0-5 SEEN /hpf (5-10)
[2018-11-05 19:10] LABS: Bacteria 2+ /hpf (None Seen); White Blood Cells 0-5 SEEN /hpf (0-5)
--- NOTE | 2018-11-05 19:51 | NURSING ---
late note: magnesium sulfate checks from [id number] were incomplete on BP's, RR, HR, SPO2 due to being under the care of Rubén cobb CRNA.
--- NOTE | 2018-11-05 21:54 | NURSING ---
See magnesium flowsheet for vital signs.
[2018-11-05 22:15] LABS: Pathology Specimen OB SEE PATHOLOGY REPORT
[2018-11-05] MEDS: Labetalol 100 MG Tablet PO (22:30)
[2018-11-06] VITALS (16 sets, daily range): BP systolic 103–138; BP diastolic 54–78; PULSE 69–90; RESP 16–20; TEMP 35.8–36.6; O2SAT 97–99
[2018-11-06] MEDS: Ketorolac 30 MG/ML Syringe IV ×5 (00:13→23:55)
[2018-11-06] MEDS: Lactated Ringers 1,000 ML 100 ML IV (01:34)
[2018-11-06] MEDS: Cefazolin 1 GM/50 ML BAG IV ×2 (01:34→10:21)
[2018-11-06] MEDS: Magnesium Sulfate 20 GM/500 ML BAG IV (02:31)
[2018-11-06 06:13] LABS: Hematocrit 29.5 % (37-47); Hemoglobin 9.7 g/dl (12.0-15.0); Mean Corp Hgb Conc 32.9 g/gl (32-36); Mean Corpuscular Hgb 27.5 pg (27.0-32.0); Mean Corpuscular Volume 83.6 fL (81-99); Platelet Count 210 K/mm3 (150-450); RBC Distribution Width CV 13.3 % (11.6-14.6); RBC Distribution Width SD 38.8 fl (35.1-43.9); Red Blood Count 3.53 M/mm3 (4.2-5.4); White Blood Count 12.7 K/mm3 (4.4-11.0)
[2018-11-06 06:21] LABS: Scan Indicated on CBC? Y/N NO
--- NOTE | 2018-11-06 08:32 | PCM.PN.OB ---
Subjective: Patient without complaints. Tolerating diet well. Denies any PIH symptoms. Minimal vaginal bleeding. - Physical Exam Vital Signs Temp Pulse Resp BP Pulse Ox 96.5 F L 69 18 103/57 L 98 11/06/18 07:40 11/06/18 07:40 11/06/18 07:40 11/06/18 07:40 11/06/18 07:40 Oxygen Delivery Method Room Air Weight: 245 lb Body Mass Index (BMI) 42.0 Intake and Output for Last 24 Hours 11/04/18 11/05/18 11/06/18 23:59 23:59 23:59 Intake Total 3702 / 3702 1233 / 1233 Output Total 580 / 580 335 / 335 Balance 3122 / 3122 898 / 898 Laboratory Tests Past 24 Hrs 11/05/18 11/05/18 11/05/18 16:30 16:30 16:30 WBC 9.8 RBC 4.18 L Hgb 11.5 L Hct 34.6 L MCV 82.8 MCH 27.5 MCHC 33.2 RDW 13.2 RDW Differential 39.6 Plt Count 233 MPV 9.7 Immature Gran % (Auto) 0.300 Neut % (Auto) 69.6 Lymph % (Auto) 24.0 [place] % (Auto) 5.2 Eos % (Auto) 0.7 Baso % (Auto) 0.2 Absolute Neuts (auto) 6.8 Absolute Lymphs (auto) 2.36 Total Counted Not Reportable PT 12.5 INR 1.0 APTT 28.0 Creatinine Estim Creat Clear Calc Est GFR (MDRD) Af Amer Est GFR (MDRD) Non-Af Uric Acid AST ALT Urine Color Urine Clarity Urine pH Ur Specific [place] Urine Protein Urine Glucose (UA) Urine Ketones Urine Occult Blood Urine Nitrite Urine Bilirubin Urine Urobilinogen Ur Leukocyte Esterase Urine RBC Urine WBC Ur Squamous Epith Cells Urine Bacteria Urine Mucus Blood Type A POSITIVE Antibody Screen NEGATIVE 11/05/18 11/05/18 11/06/18 16:30 17:20 05:50 WBC 12.7 H RBC 3.53 L Hgb 9.7 L Hct 29.5 L MCV 83.6 MCH 27.5 MCHC 32.9 RDW 13.3 RDW Differential 38.8 Plt Count 210 MPV 10.0 Immature Gran % (Auto) Neut % (Auto) Lymph % (Auto) [place] % (Auto) Eos % (Auto) Baso % (Auto) Absolute Neuts (auto) Absolute Lymphs (auto) Total Counted PT INR APTT Creatinine 0.83 Estim Creat Clear Calc 86.36 Est GFR (MDRD) Af Amer 104 Est GFR (MDRD) Non-Af 86 Uric Acid 6.2 H AST 22 ALT 32 Urine Color Yellow Urine Clarity Clear Urine pH 6.0 Ur Specific [place] 1.015 Urine Protein 30 H Urine Glucose (UA) Normal Urine Ketones Negative Urine Occult Blood Negative Urine Nitrite Negative Urine Bilirubin Negative Urine Urobilinogen Normal Ur Leukocyte Esterase 25 H Urine RBC 0 SEEN Urine WBC 0-5 SEEN Ur Squamous Epith Cells 0-5 SEEN Urine Bacteria 2+ Urine Mucus 0 SEEN Blood Type Antibody Screen Wound is clean, dry, intact. Good urine output. Hemoglobin okay. Blood pressure stable and normal. Medical Necessity - Tobacco Use Smoking Status: Never smoker Assessment/Plan Doing well postoperative day #1 status post primary section. Will discontinue magnesium sulfate and continue to monitor closely.
[2018-11-06] MEDS: FLUoxetine 20 MG Capsule PO (10:21)
[2018-11-06] MEDS: Senna/Docusate Sodium 1 Tablet PO (10:21)
[2018-11-06] MEDS: Labetalol 100 MG Tablet PO ×2 (10:21→22:05)
[2018-11-06] MEDS: 0.9% Saline Lock 10 ML Syringe IV ×3 (13:11→23:55)
[2018-11-06] MEDS: oxyCODONE 5 MG Tablet PO (18:11)
[2018-11-07 02:30] VITALS: BP 117/57; PULSE 71; RESP 18; TEMP 36.6; O2SAT 98
[2018-11-07] MEDS: Ketorolac 30 MG/ML Syringe IV (06:37)
[2018-11-07] MEDS: 0.9% Saline Lock 10 ML Syringe IV (06:38)
[2018-11-07 08:30] VITALS: BP 130/69; PULSE 79; RESP 17; TEMP 37; O2SAT 99
[2018-11-07] MEDS: oxyCODONE 5 MG Tablet PO (08:44)
--- NOTE | 2018-11-07 09:39 | PCM.PN.OB ---
Subjective: Patient without complaints. Tolerating diet well. Positive flatus. Denies any PIH symptoms. Wants to go home today. - Physical Exam Vital Signs Temp Pulse Resp BP Pulse Ox 98.6 F 79 17 130/69 H 99 11/07/18 08:30 11/07/18 08:30 11/07/18 08:30 11/07/18 08:30 11/07/18 08:30 Oxygen Delivery Method Room Air Weight: 245 lb Body Mass Index (BMI) 42.0 Intake and Output for Last 24 Hours 11/05/18 11/06/18 11/07/18 23:59 23:59 23:59 Intake Total 3702 / 3702 2794 / 2794 Output Total 580 / 580 1475 / 1475 Balance 3122 / 3122 1319 / 1319 Wound is clean, dry, intact. Good urine output. Blood pressures are stable on labetalol twice a day. Medical Necessity - Tobacco Use Smoking Status: Never smoker Assessment/Plan Doing well postoperative day #2 status post primary section for severe -induced hypertension. Will release to home with routine instructions. Follow-up in 2 weeks and 6 weeks. Continue labetalol at home for now.
[2018-11-07] MEDS: Labetalol 100 MG Tablet PO (10:27)
[2018-11-07] MEDS: FLUoxetine 20 MG Capsule PO (10:27)
== END 2018-11-07 11:10 | disposition home or self-care (01) | DRG 788 ==
PROVIDERS: Admitting Provider Obstetrics & Gynecology; Referring Provider Obstetrics & Gynecology; Visit Provider Obstetrics & Gynecology
DX: O76 Abnormality in fetal heart rate and rhythm complicating labor and delivery (principal); O13.3 Gestational [pregnancy-induced] hypertension without significant proteinuria, third trimester; O34.43 Maternal care for other abnormalities of cervix, third trimester; O77.0 Labor and delivery complicated by meconium in amniotic fluid; O69.81X0 Labor and delivery complicated by cord around neck, without compression, not applicable or unspecified; O69.82X0 Labor and delivery complicated by other cord entanglement, without compression, not applicable or unspecified; O99.344 Other mental disorders complicating childbirth; F41.9 Anxiety disorder, unspecified; Z3A.38 38 weeks gestation of pregnancy; Z37.0 Single live birth
CPT/HCPCS: 59025; 59050; 81001; 82565; 84450; 84460; 84550; 85025; 85027; 85610; 85730; 86850; 86900; 88307; 99218; J7120; A4216; G0378; J2405

== ENCOUNTER → 2019-05-23 15:54 | Outpatient (CLI) | payer BC, SELFPAY ==
[2018-11-05 16:07] VITALS: BMI 42.0
[2019-05-23 17:32] LABS: Absolute Lymphocyte Count 1.69 X10^3/uL (0.83-4.51); Absolute Neutrophil Count 3.7 X10^3/uL (2.0-7.7); Basophil# 0.04 X10^3/uL; Basophil% 0.7 % (0-1); Eosinophil# 0.06 X10^3/uL; Hematocrit 35.4 % (37-47); Hemoglobin 10.9 g/dL (12.0-15.0); Lymphocyte # 1.69 X10^3/ul (4.0); Lymphocyte % 29.2 % (19-41); Mean Corp Hgb Conc 30.8 g/dL (32-36); Mean Corpuscular Hgb 24.5 pg (27.0-32.0); Mean Corpuscular Volume 79.7 fL (81-99); Monocyte# 0.27 X10^3/uL; Monocyte% 4.7 % (0-10); NRBC Flagged by Analyzer 0 % (0-5); Neutrophil # 3.71 X10^3/uL (2.7-7.7); Neutrophil % 64.2 % (47-70); Platelet Count 292 K/mm3 (150-450); RBC Distribution Width CV 14.2 % (11.6-14.6); RBC Distribution Width SD 41.1 fl (35.1-43.9); Red Blood Count 4.44 M/mm3 (4.2-5.4); White Blood Count 5.8 K/mm3 (4.4-11.0)
[2019-05-23 17:53] LABS: AST(SGOT) 12 U/L (15-37); Alanine Aminotransfer ALT/SGPT 17 U/L (13-56); Albumin, Serum 3.8 g/dL (3.2-5.0); Alkaline Phosphatase 97 U/L (45-117); Anion Gap 5 (5-15); BUN 9 mg/dL (7-18); BUN/Creat Ratio 9.6 RATIO (10-20); Calcium,Total 8.3 mg/dL (8.5-10.1); Chloride 106 mmol/L (98-107); Creatinine, Serum 0.94 mg/dL (0.55-1.02); EST Glomerular Filtration Rate 75 mL/min (>60); Est Glom Filt Rate - Afr Amer 90 mL/min (>60); Globulin 3.7 g/dL (2.2-4.2); Glucose 98 mg/dL (74-106); Potassium 3.9 mmol/L (3.5-5.1); Protein, Total 7.5 g/dL (6.4-8.2); Sodium Level 138 mmol/L (136-145)
[2019-05-26 03:08] LABS: HEPATITIS B SURFACE AG Negative (Negative); Hepatitis A AB, Total Negative (Negative); Hepatitis A IgM Antibody Negative (Negative); Hepatitis B Core AB IgM Negative (Negative); Hepatitis B Core Ab Total Negative (Negative); Hepatitis C Ab <0.1 s/co ratio (0.0-0.9); QNTFERON TB Mitogen Value > 10.00 IU/mL (.); QNTFERON TB Nil Value 0.02 IU/mL (.); QNTFERON TB1+ Ag Value 0.03 IU/mL (.); QNTFERON TB2+ Ag Value 0.02 IU/mL (.)
[2019-05-27 10:36] LABS: Hep B Surface Antibodies Reactive (.); QNTIFERON TB Positive Criteria Negative (Negative)
== END ==
PROVIDERS: Referring Provider Dermatology; Visit Provider Dermatology
DX: L40.0 Psoriasis vulgaris (principal); Z79.899 Other long term (current) drug therapy
CPT/HCPCS: 36415; 80053; 85025; 86480; 86704; 86705; 86706; 86708; 86709; 86803; 87340

== ENCOUNTER → 2019-12-05 13:51 | Outpatient (CLI) | payer BC, SELFPAY ==
[2018-11-05 16:07] VITALS: BMI 42.0
[2019-12-09 03:06] LABS: QNTFERON TB Mitogen Value > 10.00 IU/mL (.); QNTFERON TB Nil Value 0.01 IU/mL (.); QNTFERON TB1+ Ag Value 0.11 IU/mL (.); QNTFERON TB2+ Ag Value 0.01 IU/mL (.)
[2019-12-09 03:09] LABS: QNTIFERON TB Positive Criteria Negative (Negative)
== END ==
PROVIDERS: Referring Provider Physician Assistant Medical; Visit Provider Physician Assistant Medical
DX: L40.0 Psoriasis vulgaris (principal); Z79.899 Other long term (current) drug therapy
CPT/HCPCS: 36415; 86480

== ENCOUNTER → 2020-11-03 14:10 | Outpatient (CLI) | payer BC, SELFPAY ==
[2018-11-05 16:07] VITALS: BMI 42.0
[2020-11-08 14:07] LABS: QNTFERON TB Mitogen Value > 10.00 IU/mL (.); QNTFERON TB Nil Value 0.04 IU/mL (.); QNTFERON TB1+ Ag Value 0.06 IU/mL (.); QNTFERON TB2+ Ag Value 0.07 IU/mL (.)
[2020-11-09 16:41] LABS: QNTIFERON TB Positive Criteria Negative (Negative)
== END ==
PROVIDERS: Referring Provider Physician Assistant Medical; Visit Provider Physician Assistant Medical
DX: L40.0 Psoriasis vulgaris (principal); Z79.899 Other long term (current) drug therapy
CPT/HCPCS: 36415; 86480

== ENCOUNTER → 2022-02-11 | Outpatient (CLI) | payer BC, SELFPAY ==
[2022-02-15 13:08] LABS: QNTFERON TB Mitogen Value > 10.00 IU/mL (.); QNTFERON TB Nil Value 0.02 IU/mL (.); QNTFERON TB1+ Ag Value 0.03 IU/mL (.); QNTFERON TB2+ Ag Value 0.03 IU/mL (.)
[2022-02-17 14:49] LABS: QNTIFERON TB Positive Criteria Negative (Negative)
== END | disposition home or self-care (01) ==
LOC: MTLAB 09:16
PROVIDERS: Referring Provider Physician Assistant Medical; Visit Provider Physician Assistant Medical
DX: L40.0 Psoriasis vulgaris (principal); Z79.899 Other long term (current) drug therapy
CPT/HCPCS: 36415; 86480

== ENCOUNTER → 2022-04-20 | Outpatient (CLI) | payer BC, SELFPAY ==
[2022-04-20 15:45] LABS: Absolute Lymphocyte Count 1.78 X10^3/uL (0.83-4.51); Absolute Neutrophil Count 6.1 X10^3/uL (2.0-7.7); Basophil# 0.02 X10^3/uL; Basophil% 0.2 % (0-1); Eosinophil# 0.07 X10^3/uL; Eosinophils% 0.8 % (0-5); Hematocrit 37.4 % (37-47); Hemoglobin 12.3 g/dL (12.0-15.0); Lymphocyte # 1.78 X10^3/ul (0.83-4.51); Lymphocyte % 21.4 % (19-41); Mean Corp Hgb Conc 32.9 g/dL (32-36); Mean Corpuscular Hgb 28.2 pg (27.0-32.0); Mean Corpuscular Volume 85.8 fL (81-99); Mean Platelet Vol. 9.9 fl (6.2-12.0); Monocyte# 0.35 X10^3/uL; Monocyte% 4.2 % (0-10); NRBC Flagged by Analyzer 0 % (0-5); Neutrophil # 6.06 X10^3/uL (2.7-7.7); Platelet Count 293 K/mm3 (150-450); RBC Distribution Width CV 11.9 % (11.6-14.6); RBC Distribution Width SD 37.1 fl (35.1-43.9); Red Blood Count 4.36 M/mm3 (4.2-5.4); White Blood Count 8.3 K/mm3 (4.4-11.0)
[2022-04-21 08:53] LABS: HIV - WCH Non-Reactive (Nonreactive); Hepatitis B Surface Antigen Non-Reactive (Nonreactive); Hepatitis C Antibody Non-Reactive (Nonreactive); Rubella IgG Reactive (Nonreactive); Syphilis Antibodies Non-reactive
[2022-04-22 19:18] LABS: V-Zoster IgG (Immunity) 2907 index (Immune >165)
[2022-04-22 22:07] LABS: Chlamydia By Nucleic Acid AMP Negative (Negative)
[2022-04-23 10:11] LABS: Gonococcus By Nucleic Acid AMP Negative (Negative)
[2022-04-29 09:11] LABS: HPV APTIMA, High Risk Negative (Negative)
== END | disposition home or self-care (01) ==
LOC: WOBLAB 14:41
PROVIDERS: Visit Provider Obstetrics & Gynecology
DX: Z34.81 Encounter for supervision of other normal pregnancy, first trimester (principal); Z12.4 Encounter for screening for malignant neoplasm of cervix; Z11.3 Encounter for screening for infections with a predominantly sexual mode of transmission
CPT/HCPCS: 36415; 85025; 86703; 86762; 86780; 86787; 86803; 87086; 87088; 87340; 87491; 87591; 87624; 88175; G0145

== ENCOUNTER → 2022-07-21 | Outpatient (CLI) | payer BC, SELFPAY ==
--- NOTE | 2022-07-21 14:28 | US_ITS ---
STUDY: SECOND AND THIRD TRIMESTER OBSTETRICAL ULTRASOUND REASON FOR EXAM: Female, 32 years old Anatomy LMP: 02/27/2022. TECHNIQUE: Transabdominal and Transvaginal TECHNICAL QUALITY: Adequate. PRIOR ULTRASOUND: None. FINDINGS: There is a single intrauterine fetus. The fetus is in a transverse lie with the head on the maternal right side. There is demonstrated cardiac activity with a heart rate of 161 bpm. There is a normal amniotic fluid volume. The largest amniotic fluid pocket measures 4 cm x 5.1 cm. The amniotic fluid index (RADHA) is within normal limits. The placenta is fundal in location. There are Grade 0 placental changes. The cervix measures 4.2 cm in length. The adnexal regions are not visualized. BIOMETRY: BPD: 5.8 cm: 23 weeks, 5 days HC: 21.43 cm: 23 weeks, 3 days AC: 18.59 cm: 23 weeks, 3 days FL: 3.88 cm: 22 weeks, 3 days CI: 77% FL/BPD: 67% FL/HC: FL/AC: 20.9% HC/AC: 1.15 age by current US: 22 weeks, 2 days. VANCE by current US: 11/15/2022. Estimated weight: 566 grams, +/- 85 grams, 99 %. Age by LMP: 21 weeks, 5 days. VANCE by LMP: 11/26/2022. ANATOMY: Gender: Female Cranium: Normal lateral ventricles. Normal choroid plexus. Normal cerebellum. Normal cisterna magna. Normal face, nose and lips. Chest: Normal 4-chamber heart. Abdomen/Pelvis: Normal diaphragm. Normal stomach. Normal abdominal wall. Normal cord insertion. Normal 3 vessel cord. Normal kidneys. Normal bladder. Spine: Normal cervical spine. Normal thoracic spine. Normal lumbar spine. Normal sacrum. Extremities: Normal bilateral upper extremities. Normal bilateral lower extremities. IMPRESSION: Single live intrauterine gestation with a mean gestational age of 22 weeks and 2 days. Electronically Signed: Sam Jack MD at 11:28 EST , STUDY: FIRST TRIMESTER OBSTETRICAL ULTRASOUND REASON FOR EXAM: Female, 32 years old . Cervical length. LMP: 02/27/2022. TECHNIQUE: Transvaginal TECHNICAL QUALITY: Adequate. PRIOR ULTRASOUND: None. FINDINGS: Cervical length measures 4.2 cm. US/OB Anatomy Scan IMPRESSION: Cervical length measures 4.2 cm. Electronically Signed: Sam Jack MD at 11:29 EST ,
== END | disposition home or self-care (01) ==
LOC: US 14:28
PROVIDERS: Referring Provider Registered Nurse; Visit Provider Registered Nurse
DX: O09.90 Supervision of high risk pregnancy, unspecified, unspecified trimester (principal); Z3A.22 22 weeks gestation of pregnancy
CPT/HCPCS: 76805; 76817

== ENCOUNTER → 2022-08-11 | Outpatient (CLI) | payer BC, SELFPAY ==
[2022-08-11 10:15] LABS: Absolute Lymphocyte Count 1.94 X10^3/uL (0.83-4.51); Absolute Neutrophil Count 4.8 X10^3/uL (2.0-7.7); Basophil# 0.01 X10^3/uL; Basophil% 0.1 % (0-1); Eosinophil# 0.05 X10^3/uL; Eosinophils% 0.7 % (0-5); Hematocrit 30.4 % (37-47); Hemoglobin 10.1 g/dL (12.0-15.0); Lymphocyte # 1.94 X10^3/ul (0.83-4.51); Lymphocyte % 27.6 % (19-41); Mean Corp Hgb Conc 33.2 g/dL (32-36); Mean Corpuscular Hgb 28.1 pg (27.0-32.0); Mean Corpuscular Volume 84.7 fL (81-99); Mean Platelet Vol. 9.3 fl (6.2-12.0); Monocyte# 0.22 X10^3/uL; Monocyte% 3.1 % (0-10); NRBC Flagged by Analyzer 0 % (0-5); Neutrophil # 4.78 X10^3/uL (2.7-7.7); Neutrophil % 68.1 % (47-70); Platelet Count 272 K/mm3 (150-450); RBC Distribution Width CV 12.7 % (11.6-14.6); RBC Distribution Width SD 38.7 fl (35.1-43.9); Red Blood Count 3.59 M/mm3 (4.2-5.4)
[2022-08-11 10:25] LABS: ALB/GLOB Ratio 0.7 RATIO (0.9-2.4); AST(SGOT) 9 U/L (15-37); Alanine Aminotransfer ALT/SGPT 23 U/L (13-56); Albumin, Serum 2.7 g/dL (3.2-5.0); Alkaline Phosphatase 86 U/L (45-117); Anion Gap 6 (5-15); BUN 5 mg/dL (7-18); BUN/Creat Ratio 8.3 RATIO (10-20); Chloride 109 mmol/L (98-107); EST Glomerular Filtration Rate 121 mL/min (>60); Est Glom Filt Rate - Afr Amer 146 mL/min (>60); Glucose 155 mg/dL (74-106); Glucose Challenge Gest 1H 50g 155 mg/dL (70-140); Potassium 3.4 mmol/L (3.5-5.1); Protein, Total 6.7 g/dL (6.4-8.2); Sodium Level 138 mmol/L (136-145)
[2022-08-11 10:30] LABS: Protein, Urine (Random) 31.4 mg/dL (<11.9); Protein:Creat Ratio 123 mg/g CRE (0-200)
[2022-08-11 10:57] LABS: HIV - WCH Non-Reactive (Nonreactive); Syphilis Antibodies Non-reactive
== END | disposition home or self-care (01) ==
LOC: PAVLAB 09:18
PROVIDERS: Referring Provider Obstetrics & Gynecology; Visit Provider Obstetrics & Gynecology
DX: O09.90 Supervision of high risk pregnancy, unspecified, unspecified trimester (principal); Z3A.00 Weeks of gestation of pregnancy not specified; Z87.59 Personal history of other complications of pregnancy, childbirth and the puerperium
CPT/HCPCS: 36415; 80053; 82570; 82950; 84156; 85025; 86703; 86780

== ENCOUNTER → 2022-08-19 | Outpatient (CLI) | payer BC, SELFPAY ==
[2022-08-19 07:25] LABS: Glucose GTT-Gestation. Fasting 104 mg/dL (<105)
[2022-08-19 08:21] LABS: Glucose GTT-Gestational 1 Hr 173 mg/dL (<190)
[2022-08-19 09:46] LABS: Glucose GTT-Gestational 2 Hr 137 mg/dL (<165)
[2022-08-19 10:22] LABS: Glucose GTT-Gestational 3 Hr 118 L (<145)
== END | disposition home or self-care (01) ==
LOC: LAB 06:40
PROVIDERS: Referring Provider Obstetrics & Gynecology; Visit Provider Obstetrics & Gynecology
DX: Z13.1 Encounter for screening for diabetes mellitus (principal)
CPT/HCPCS: 36415; 82951; 82952

== ENCOUNTER → 2022-09-16 | Outpatient (CLI) | payer BC, SELFPAY ==
--- NOTE | 2022-09-16 14:23 | US_ITS ---
STUDY: SECOND AND THIRD TRIMESTER OBSTETRICAL ULTRASOUND - LIMITED REASON FOR EXAM: Female, 32 years old growth LMP: 02/12/2022. PRIOR ULTRASOUND: Comparison is made with prior study dated 07/21/2022. TECHNIQUE: Transabdominal TECHNICAL QUALITY: Adequate. FINDINGS: There is a single intrauterine fetus. The fetus is in a cephalic presentation. There is demonstrated cardiac activity with a heart rate of 147 bpm. There is a normal amniotic fluid volume. The largest amniotic fluid pocket measures 6.7 cm. The amniotic fluid index (RADHA) is 17.8 cm. The placenta is fundal in location. There are Grade 1 placental changes. The cervix was not measured due to the head positioning. BIOMETRY: BPD: 8.1 cm: 32 weeks, 3 days HC: 29.5 cm: 32 weeks, 4 days AC: 29.9 cm: 33 weeks, 6 days FL: 6 cm: 31 weeks, 3 days Age by LMP: 30 weeks, 6 days. VANCE by LMP: 11/19/2022. age by prior US: 31 weeks, 3 days. VANCE by prior US: 11/15/2022. age by current US: 32 weeks, 3 days. VANCE by current US: 11/08/2022. Estimated weight: 2101 grams, +/- 3:15 grams, 95 percentile. US/OB Limited With Biometrics IMPRESSION: Single live uterine gestation with mean gestational age of 31 weeks and 3 days. The measurements are obtained today fall within upper limits of normal. Electronically Signed: Sam Jack MD at 15:44 EST ,
== END | disposition home or self-care (01) ==
LOC: US 14:21
PROVIDERS: Referring Provider Obstetrics & Gynecology; Visit Provider Obstetrics & Gynecology
DX: O99.213 Obesity complicating pregnancy, third trimester (principal); Z3A.31 31 weeks gestation of pregnancy
CPT/HCPCS: 76816

== ENCOUNTER → 2022-09-23 | Outpatient (CLI) | payer BC, SELFPAY ==
[2022-09-23 07:13] LABS: Glucose GTT-Gestation. Fasting 104 mg/dL (<105)
[2022-09-23 08:42] LABS: Glucose GTT-Gestational 1 Hr 173 mg/dL (<190)
[2022-09-23 10:50] LABS: Glucose GTT-Gestational 3 Hr 90 L (<145)
[2022-09-23 10:50] LABS: Glucose GTT-Gestational 2 Hr 147 mg/dL (<165)
== END | disposition home or self-care (01) ==
PROVIDERS: Referring Provider Obstetrics & Gynecology; Visit Provider Obstetrics & Gynecology
DX: Z13.1 Encounter for screening for diabetes mellitus (principal)
CPT/HCPCS: 36415; 82951; 82952

== ENCOUNTER → 2022-10-05 | Outpatient (CLI) | payer BC, SELFPAY ==
[2022-10-05 14:24] LABS: Protein, Urine (Random) 20.7 mg/dL (<11.9); Protein:Creat Ratio 121 mg/g CRE (0-200)
== END | disposition home or self-care (01) ==
LOC: LABSPEC 14:06
PROVIDERS: Referring Provider Obstetrics & Gynecology; Visit Provider Obstetrics & Gynecology
DX: O09.90 Supervision of high risk pregnancy, unspecified, unspecified trimester (principal); Z3A.00 Weeks of gestation of pregnancy not specified
CPT/HCPCS: 82570; 84156

== ENCOUNTER 2022-10-08 22:00 | Outpatient (CLI) | payer BC, SELFPAY ==
[2022-10-08 22:14] VITALS: BMI 45.1
[2022-10-08 22:24] VITALS: BP 133/69; PULSE 90; TEMP 36.1
[2022-10-08 22:40] VITALS: BP 116/61; PULSE 91
--- NOTE | 2022-10-08 22:50 | OB.TRI.HP_ITS ---
HPI - General HPI Narrative MARIO MOREIRA, is a 32 F who presents with sudden abdominal/epigastic pain at 34weeks . denies vaginal bleeding, ctx. good fm. Maternal Data Information VANCE Calculator Estimated Delivery Date Method Current WG Current Estimate 11/19/22 LMP (Certain) 34w 5d Other Estimates 12/04/22 Ultrasound #1 32w 4d 11/22/22 Ultrasound #2 34w 2d PFSH PFSH Medical History Hx of infertility Home Medications vit no.95-ferrous fumarate 28 mg-folic acid 800 mcg tablet () 1 ea PO vitamin 11/05/18 [History Last Taken 10/13/22] sertraline 100 mg tablet 100 mg PO DAILY axiety 10/08/22 [History Last Taken 10/13/22] Allergy/AdvReac Type Severity Reaction Status Date / Time amoxicillin Allergy Rash Verified 10/13/22 09:06 Surgical History History of tonsillectomy Hx of section Social History adopted: No household members: spouse and children housing: house number of children: 1 current occupational status: unemployed pets and animals: Yes pets and animals: dog(s) history of recent travel: No sexually active: Yes Smoking Status: Never smoker alcohol intake: former details: occasional prior to substance use type: does not use well-balanced diet: daily or most days caffeine: No eating out: 1-3 times/week during the past year weight has: remained stable what type of physical activity do you participate in: walking cristiana/uatsdin: Uatsdin seatbelt use: always do you feel safe at home: Yes additional social history: [employer]- [employer] at [employer] History 2 Elective abortions Hx Para 1 Spontaneous abortions Hx # Term Pregnancies Ectopic pregnancies Hx # Pregnancies Multiple births # of living children 1 Past Pregnancies Del. Date Name GA/Weeks Outcome Route Bth Weight Infant Gen Labor Lgth Anesthesia Del Locatn Provider FOB 11/05/18 [facility] 38 live - full term 5#1oz Male s angelito [facility] Traci Tenorio Delivery Date: 11/05/18 Last Updated by: Maryanne Pizano pre e Visit Details Expected Delivery Route/Plan desires repeat c/s and BS Plans Covid status: declined Flu vaccine: declined Tdap vaccine: discussed Rhogam: na LARC form signed: yes movement and labor precautions reviewed. Problem list reviewed and updated with the most current plan of care details and appropriate orders placed. Relevant counseling for the gestational age provided. Continue routine care and follow up unless otherwise noted in visit notes/problem list details OB Flowsheet Initial Weight: Not Recorded Date -?-?-?-?-?-?-?-?-?-?-?-?- EGA Weight BP Urine Prot -?-?-?-?-?-?-?-?-?-?-?-?- Glucose FHR FuHt Pres Dilation -?-?-?-?-?-?-?-?-?-?-?-?- Effaced St Visit Note 07/11/22 -?-?-?-?-?-?-?-?-?--?-?-?- 21w 2d 262 lb 125/80 Negative -?-?-?-?-?-?-?-?-?-?-?-?- Negative 147 20 -?-?-?-?-?-?-?-?-?-?-?-?- LC- transfer of care. up to date for OB care. anatomy scan ordered. LC- transfer of care. up to date for OB care. anatomy scan ordered. experiencing increased anxiety, desiring medication. zoloft 25mg sent. LC- transfer of care. up to date for OB care. anatomy scan ordered. experiencing increased anxiety, desiring medication. zoloft 25mg sent. obtain baseline PEC labs with next visit. 08/09/22 -?-?-?-?-?-?-?--?-?-?-?-?- 25w 3d 259 lb 6 oz 131/81 Nega tive -?-?-?-?-?-?-?-?-?-?-?-?- Negative 150 30 -?-?-?-?-?-?-?-?-?-?-?-?- JV- no proof of first trimester ultrasound or follow up and anatomy scan is more consistent with LMP. new and final vance given of 11/19/22 09/09/22 -?-?-?-?-?-?-?-?-?-?-?-?- 29w 6d 265 lb 2 oz 147/86 -?-?-?-?-?-?-?-?-?-?-?-?- 150 33 -?-?-?-?-?-?-?-?-?-?-?-?- Sm- no vb lof go od fm no regular ctx. discussed incresaing zoloft. 09/20/22 -?-?-?-?-?-?-?-?-?-?-?-?- 31w 3d 261 lb 6 oz 132/86 Nega tive -?-?-?-?-?-?-?-?-?-?-?-?- Negative 147 34 -?-?-?-?-?-?-?-?-?-?-?-?- MH-No VB, LOF. G ood FM. Rd ligament pain. 3 hr GTT is 09/23. Has further growth US and NSTs scheduled. Larc 10/05/22 -?-?-?-?-?-?-?-?-?-?-?-?- 33w 4d 260 lb 2 oz 132/86 Nega tive -?-?-?-?-?-?-?-?-?-?-?-?- Negative 132 36 -?-?-?-?-?-?-?-?-?-?-?-?- JV- pt is worrie d today about h/o pre-e. Prot: cr ordered, has growth scan next week and NSTs starting weekly. pt will also bring her bp cuff to compare hers to ours for accuracy 10/13/22 -?-?-?-?-?-?-?-?-?-?-?-?- 34w 5d 263 lb 137/87 Negative -?-?--?-?-?-?-?-?-?-?-?-?- Negative 180 -?-?-?-?-?-?-?-?-?-?-?-?- SM- incomplete n st done here and sent to l and d for further evaluation due to high baseline 180s NST FHR Rate Baby A Baseline: 120-140 baseline Variability:: Moderate Accelerations:: 15 x 15 Decelerations:: None NST Reactive:: Yes FHR Category:: Category I Assessment & Plan (1) GERD (gastroesophageal reflux disease): COMMENT: improved GERD with 20mg Prilosec. will continue BID (2) Obesity affecting : COMMENT: weekly nsts after 34 and growth US q 4 (3) History of gestational hypertension: COMMENT: 1st 20wks started labetalol (4) Hx of pre-eclampsia in prior , currently : COMMENT: c section 38 weeks first (5) Supervision of high risk , antepartum: COMMENT: PRR , VANCE 12/04/22 girl Lynda Cummings Jona (6) : QUALIFIERS: Weeks of gestation: 33 weeks Qualified Code(s): Z3A.33 - 33 weeks gestation of COMMENT: discussed genetic & carrier testing, pt had testing earlier before MADELEINE, nl 3 hr GTT PLAN: Plan pt with improved symptoms after Prilosec. denies epigastric pain, headache, visual changes. cat 1 heart tracing. stable for d/c home Patient presents for triage evaluation secondary to epigastric discomfort at 34 weeks. FHT: Moderate variability reactive no decelerations category I tracing [place]: no Contractions Assessment and plan: Reactive NST, reassuring maternal and status patient discharged to home to follow-up in office. See problem list details for additional plan information. Charges/Coding Procedures Urinary/Genital 52xxx-59xxx: 77188-76 non-stress test Interp
[2022-10-08] MEDS: Famotidine 20 MG Tablet PO (23:10)
== END 2022-10-09 00:27 | disposition home or self-care (01) ==
LOC: WPOUT 22:02 → WP 22:03
PROVIDERS: Visit Provider Registered Nurse
DX: O99.891 Other specified diseases and conditions complicating pregnancy (principal); R10.13 Epigastric pain; O99.613 Diseases of the digestive system complicating pregnancy, third trimester; K21.9 Gastro-esophageal reflux disease without esophagitis; O99.213 Obesity complicating pregnancy, third trimester; O09.03 Supervision of pregnancy with history of infertility, third trimester; O34.219 Maternal care for unspecified type scar from previous cesarean delivery; Z3A.34 34 weeks gestation of pregnancy; Z87.59 Personal history of other complications of pregnancy, childbirth and the puerperium
CPT/HCPCS: 59025; 59050; 99221; G0378

== ENCOUNTER 2022-10-13 08:35 | Outpatient (CLI) | payer BC, SELFPAY ==
[2022-10-13 08:53] VITALS: BP 134/72; PULSE 96
[2022-10-13 08:55] VITALS: PULSE 93; TEMP 36.6; O2SAT 100; O2SAT 99
[2022-10-13 09:03] VITALS: BMI 45.1
--- NOTE | 2022-10-15 09:39 | OB.TRI.PN ---
Progress Notes Date of Service: 10/15/22 Progress Note: Patient presents for triage evaluation secondary to elevated baseling FHT: 150-160 Moderate variability reactive no decelerations category I tracing [place]: no regualr Contractions Assessment and plan: tachycardia- resolved Reactive NST, reassuring maternal and status patient discharged to home to follow-up as scheudled. See problem list details for additional plan information. Charges/Coding Procedures Urinary/Genital 52xxx-59xxx: 76315-34 non-stress test Interp
== END 2022-10-13 10:30 | disposition home or self-care (01) ==
LOC: WPOUT 08:41 → WP 08:41
PROVIDERS: Referring Provider Obstetrics & Gynecology; Visit Provider Obstetrics & Gynecology
DX: O35.BXX0 Maternal care for other (suspected) fetal abnormality and damage, fetal cardiac anomalies, not applicable or unspecified (principal)
CPT/HCPCS: 59025; 59050; 99221; G0378

== ENCOUNTER → 2022-10-14 | Outpatient (CLI) | payer BC, SELFPAY ==
--- NOTE | 2022-10-14 12:18 | US_ITS ---
STUDY: SECOND AND THIRD TRIMESTER OBSTETRICAL ULTRASOUND - LIMITED REASON FOR EXAM: Female, 32 years old growth LMP: 02/12/2022 PRIOR ULTRASOUND: 09/16/2022 TECHNIQUE: Transabdominal TECHNICAL QUALITY: Adequate. FINDINGS: There is a single intrauterine fetus. The fetus is in a cephalic presentation. There is demonstrated cardiac activity with a heart rate of 148 bpm. There is a normal amniotic fluid volume. The largest amniotic fluid pocket measures 8.6 cm. The amniotic fluid index (RADHA) is 17.7 cm. The placenta is anterior in location and is not low lying. There are Grade 2 placental changes. The cervix was not visualized BIOMETRY: BPD: 9.0 cm: 36 weeks, 3 days HC: 32.8 cm: 37 weeks, 2 days AC: 33.7 cm: 37 weeks, 4 days FL: 6.8 cm: 35 weeks, 0 days age by prior US: 32 weeks, 3 days. VANCE by prior US: 11/08/2022. age by current US: 36 weeks, 6 days. VANCE by current US: 11/05/2022. Estimated weight: 3051 grams, +/- 458 grams, 92 percentile. US/OB Limited With Biometrics IMPRESSION: Single live intrauterine at 36 weeks, 6 days by current ultrasound with VANCE of 11/05/2022. Heart rate at 148 bpm. No suspicious sonographic findings, normal growth noted since the previous study Electronically Signed: Robin Wei MD at 13:36 EDT ,
== END | disposition home or self-care (01) ==
LOC: US 12:16
PROVIDERS: Visit Provider Obstetrics & Gynecology
DX: O99.210 Obesity complicating pregnancy, unspecified trimester (principal); Z3A.00 Weeks of gestation of pregnancy not specified
CPT/HCPCS: 76816

== ENCOUNTER → 2022-10-27 | Outpatient (CLI) | payer BC, SELFPAY | END | disposition home or self-care (01) | LOC: LABSPEC 13:07 | PROVIDERS: Referring Provider Obstetrics & Gynecology; Visit Provider Obstetrics & Gynecology | DX: O09.90 Supervision of high risk pregnancy, unspecified, unspecified trimester (principal); Z3A.00 Weeks of gestation of pregnancy not specified | CPT/HCPCS: 87081 ==

== ENCOUNTER 2022-11-11 11:35 | Inpatient (IN) | payer BC, SELFPAY ==
[2022-11-11] VITALS (17 sets, daily range): BP systolic 116–153; BP diastolic 64–94; PULSE 58–104; RESP 15–16; TEMP 36–36.7; O2SAT 95–98; BMI 45.7
--- NOTE | 2022-11-11 | FALS_PTH ---
PATIENT: MARIO MOREIRA LOC: WP U#:[id number] AGE/SX: 32/F ROOM: WP005 RE11/11/[address]: Dr. Adelaide Daniels MD : 1990 BED: 1 DIS: 11/13/2022 SPEC #: [id number] RECD: 11/11/22 19:38 STATUS: VALORIE OLMOSShaun #: [id number] YONI: 11/11/22 00:[address]: Adelaide Daniels DEPT: SURGICAL PATHOLOGY RECD BY: Sung Gay ENTERED: 11/14/22 11:31 SP TYPE: FALL TUBES OTHR DR: No Primary Care Phys Tissues: Fallopian tube Procedures: Surgery Specimen Level II HEADER OPERATION: Tubal ligation PRE-OP DIAGNOSIS: Sterilization TISSUE SUBMITTED: Fallopian tubes MICROSCOPIC DIAGNOSIS Bilateral fallopian tubes, salpingectomy: Bilateral fallopian tubes, no pathologic diagnosis. IGNACIO:diamond 11/15/2022 MICROSCOPIC DESCRIPTION Slides are reviewed. GROSS DESCRIPTION Received in fixative is one container labeled with the patient's name and designated bilateral fallopian tubes, right tube suture. The specimen consists of bilateral fallopian tubes including fimbrial ends. The right fallopian tube measures 7.0 cm in length and up to 1.0 cm in diameter and left fallopian tube measures 7.0 cm in length and up to 1.0 cm in diameter. Sections reveal unremarkable cut surfaces. Senior Qc Technician sections are submitted in two cassettes with each cassette containing one fallopian tube. / IGNACIO:diamond 11/14/2022 TC:4 CPT: 40951 x2
[2022-11-11 10:40] LABS: Hematocrit 31.6 % (37-47); Hemoglobin 9.8 g/dL (12.0-15.0); Mean Corpuscular Hgb 24.6 pg (27.0-32.0); Mean Corpuscular Volume 79.4 fL (81-99); Mean Platelet Vol. 9.7 fl (6.2-12.0); Platelet Count 224 K/mm3 (150-450); RBC Distribution Width SD 36.7 fl (35.1-43.9); Red Blood Count 3.98 M/mm3 (4.2-5.4); White Blood Count 7.2 K/mm3 (4.4-11.0)
[2022-11-11 10:51] LABS: AST(SGOT) 16 U/L (15-37); Alanine Aminotransfer ALT/SGPT 20 U/L (13-56); Creatinine, Serum 0.63 mg/dL (0.55-1.02); EST Glomerular Filtration Rate 116 mL/min (>60); Est Glom Filt Rate - Afr Amer 140 mL/min (>60); Uric Acid 4.7 mg/dL (2.6-6.0)
[2022-11-11 11:02] LABS: Protein, Urine (Random) 26.6 mg/dL (<11.9); Protein:Creat Ratio 149 mg/g CRE (0-200)
[2022-11-11 13:39] LABS: Syphilis Antibodies Non-reactive
[2022-11-11] MEDS: Lactated Ringers 1,000 ML 999 ML IV (14:07)
[2022-11-11] MEDS: Acetaminophen 500 MG Tablet 1000 MG PO ×2 (14:09→22:14)
[2022-11-11] MEDS: Sodium Citrate/Citric Acid 30 ML UDC PO (14:10)
--- NOTE | 2022-11-11 16:09 | HP.PCM_ITS ---
History and Physical HPI- patient presented to office for routine visit was found to have elevated blood pressures and therefore was ruled out for preeclampsia. Patient had persistent elevated blood pressures but normal proteinuria therefore was diagnosed with gestational hypertension. Recommend proceed with delivery. [facility] [address] [place] [address] OFFICE VISIT Date of Service:? 11/11/22 MR#: [id number] Acct: [id number] Name:? MARIO MOREIRA Rep #: [id number] : 1990 ? ? Provider: Dr. Adelaide Daniels MD Age/Sex:? 32/F ? ? [place] [facility] [place]: Signed Intake Vital Signs ? 09/09/2309:46 11/03/2310:27 11/11/2308:08 11/11/2308:09 Height 5 ft 4 in 5 ft 4 in 5 ft 4 in 5 ft 4 in Weight: ? ? 269 lb 2 oz ? BMI ? ? 46.2 ? BP ? ? 143/86 H ? Intake Visit Reasons:?38 WK OB/NST Die Designer Required: No Is patient in pain?: No Allergies amoxicillin Allergy (Verified 11/11/22 09:09) Rash Medications vit no.95-ferrous fumarate 28 mg-folic acid 800 mcg tablet () 1 ea PO DAILY vitamin 11/05/18 [History Confirmed 11/11/22] sertraline 100 mg tablet 100 mg PO DAILY axiety 10/08/22 [History Confirmed 11/11/22] Last Menstrual Period: 02/19/22 Zika: Zika virus screening: Negative : No PFSH PFSH Medical History? Hx of infertility Surgical History? History of tonsillectomy Hx of section Social History? adopted:? No household members:? spouse and children housing:? house number of children:? 1 current occupational status:? unemployed pets and animals:? Yes pets and animals: dog(s) history of recent travel:? No sexually active:? Yes Smoking Status:? Never smoker alcohol intake:? former details:? occasional prior to substance use type:? does not use well-balanced diet:? daily or most days caffeine:? No eating out:? 1-3 times/week during the past year weight has:? remained stable what type of physical activity do you participate in:? walking cristiana/anabaptist:? Yazidi seatbelt use:? always do you feel safe at home:? Yes additional social history:? 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 ? ? 2 ? Elective abortions ? Hx Para ? ? ? 1 ? Spontaneous abortions ? Hx # Term Pregnancies ? Ectopic pregnancies ? Hx # Pregnancies ? Multiple births ? # of living children ? ? ? 1 Past Pregnancies Del. Date Name GA/Weeks Outcome Route Bth Weight Gen Labor Lgth Anesthesia Del Locatn Provider FOB 11/05/18 Emiliano 38 live - full term 5#1o z Male ? spinal [facility] Traci Tenorio Delivery Date: 11/05/18? Last Updated by: Maryanne Pizano ? ? ? pre e HPI 38 WK OB/NST Details: MARIO MOREIRA is a 32 year old who presents for routine OB visit. OB Visit VANCE Calculator ? Estimated Delivery Date Method Current WG Current Estimate 11/19/22 LMP (Certain) 38w 6d Other Estimates 12/04/22 Ultrasound #1 36w 5d ? 11/22/22 Ultrasound #2 38w 3d Expected Delivery Route/Plan desires repeat c/s and BS Specific Issue/Plans Covid status: declined Flu vaccine: declined Tdap vaccine: discussed Rhogam: na LARC form signed: yes movement and labor precautions reviewed. Problem list reviewed and updated with the most current plan of care details and appropriate orders placed.? Relevant counseling for the gestational age provided. Continue routine care and follow up unless otherwise noted in visit notes/problem list details Initial Weight:?Not Recorded Date -?-?-?-?-?-?-?-?-?-?-?-?- EGA Weight BP Urine Prot -?-?-?-?-?-?-?-?-?-?-?-?- Glucose FHR FuHt Pres Dilation -?-?-?-?-?-?-?-?-?-?-?-?- Effaced St Visit Note 07/11/22-?-?-?-?-?-?-?-?-?-?-?-?- 21w 2d 262 lb 125/80 Negative -?-?-?-?-?-?-?-?-?-?-?-?- Negative 147 20 ? -?-?-?-?-?-?-?-?-?-?-?-?- ? ? LC- transfer of care. up to date for OB care. anatomy scan ordered. LC- transfer of care. up to date for OB care. anatomy scan ordered. experiencing increased anxiety, desiring medication. zoloft 25mg sent. LC- transfer of care. up to date for OB care. anatomy scan ordered. experiencing increased anxiety, desiring medication. zoloft 25mg sent. obtain baseline PEC labs with next visit. 08/09/22-?-?-?-?-?-?-?-?-?-?-?-?- 25w 3d 259 lb 6 oz 131/81 Negative -?-?-?-?-?-?-?-?-?-?-?-?- Negative 150 30 ? -?-?-?-?-?-?-?-?-?-?-?-?- ? ? JV- no proof of first trimester ultrasound or follow up and anatomy scan is more consistent with LMP. new and final vance given of 11/19/22 09/09/22-?-?-?-?-?-?-?-?-?-?-?-?- 29w 6d 265 lb 2 oz 147/86 -?-?-?-?-?-?-?-?-?-?-?-?- ? 150 33 ? -?-?-?-?-?-?-?-?-?-?-?-?- ? ? Sm- no vb lof good fm no regular ctx. discussed incresaing zoloft. 09/20/22-?-?-?-?-?-?-?-?-?-?-?-?- 31w 3d 261 lb 6 oz 132/86 Negative -?-?-?-?-?-?-?-?-?-?-?-?- Negative 147 34 ? -?-?-?-?-?-?-?-?-?-?-?-?- ? ? MH-No VB, LOF. Good FM.? Rd ligament pain. 3 hr GTT is 09/23. Has further growth US and NSTs scheduled. Larc 10/05/22-?-?-?-?-?-?-?-?-?--?-?-?- 33w 4d 260 lb 2 oz 132/86 Negative -?-?-?-?-?-?-?-?-?-?-?-?- Negative 132 36 ? -?-?-?-?-?-?-?-?-?-?-?-?- ? ? JV- pt is worried today about h/o pre-e. Prot: cr ordered, has growth scan next week and NSTs starting weekly. pt will also bring her bp cuff to compare hers to ours for accuracy 10/13/22-?-?-?-?-?-?-?-?-?-?-?-?- 34w 5d 263 lb 137/87 Negative -?-?-?-?-?-?-?-?-?-?-?-?- Negative 180 ? ? -?-?-?-?-?-?-?-?-?-?-?-?- ? ? SM- incomplete nst done here and sent to l and d for further evaluation due to high baseline 180s 10/18/22-?-?-?-?-?-?-?-?-?-?-?-?- 35w 3d 264 lb 4 oz 133/84 Negative -?-?-?-?-?-?-?-?-?-?-?-?- Negative 150 ? ? -?-?-?-?-?-?-?-?-?-?-?-?- ? ? SM- no vb lof good fm n oregular ctx 10/27/22-?-?-?-?-?-?-?-?--?-?-?-?- 36w 5d 267 lb 138/84 -?-?-?-?-?-?-?-?-?-?-?-?- ? 150 ? ? -?-?-?-?-?-?-?-?-?-?-?-?- ? ? SM- no vb lof good fm no regular ctx 11/11/22-?-?-?-?-?-?-?-?-?-?-?-?- 38w 6d 269 lb 2 oz 143/86 Trace -?-?-?-?-?-?-?-?-?-?-?-?- Negative ? ? ? -?-?-?-?-?-?-?-?-?-?-?-?- ? ? SM- to l and d for evaluation ACOG First Trimester First Trimester: Desire for , Alcohol, Tobacco Cessation, Illicit/Recreational Drug/Substance Use, Intimate Partner Violence, Barriers to care, Unstable Housing, Communication Barriers, Environmental/Work Hazards, Anticipated Course of Care, Toxoplasmosis Precations, Use of Any medications, Sexual activity, Exercise, Dental Care, Sauna/Hot tub use, Seat Belt use, Childbirth classes/Hospital facilities, , Travel, Indications for Ultrasound and Screening for Aneuploidy Second Trimester Second Trimester: Signs and Symptoms of Labor, Selecting a care provider, Reproductive Life Planning & Contreception, Care Planning, Depression/Anxiety and Intimate Partner Violence; Discussed Tobacco Cessation Third Trimester Third Trimester: Pain Management Plans, Labor support person(s), Immediate Larc, Movement Monitoring, Signs and Symptoms of Preeclampsia and Education Diagnostics Diagnostics Diagnostics: ?? ? Blood Type Pending ?? ? Antibody Screen Pending ?? ? Hgb 9.8 g/dL (12.0-15.0)? L ?? ? Hct 31.6 % (37-47)? L Details: HIV: Urine Culture: Sequential Screen: NIPT Screen: Results POC Urinalysis 2 Dip? (Clinic) Office Urine Glucose Negative ? ? Last Edit by Damaris Funk on 11/11/22 09:12 Office Urine Protein Trace ? ? Last Edit by Damaris Funk on 11/11/22 09:12 Coding Level of Care Code OB Routine Diagnoses GERD (gastroesophageal reflux disease)? K21.9 Anemia affecting ? O99.019 Previous delivery affecting ? O34.219 Obesity affecting ? O99.210 Abnormal ultrasound? O28.3 Hx of pre-eclampsia in prior , currently ? O09.299 History of gestational hypertension? Z87.59 Supervision of high risk , antepartum? O09.90 ? Z3A.38 ? ? ? Weeks of gestation: 38 weeks Assessment and Plan Assessment and Plan (1) GERD (gastroesophageal reflux disease): ?Status:?Acute ?Comment: improved GERD with 20mg Prilosec. will continue BID (2) Anemia affecting : ?Status:?Acute ?Comment: add fe (3) Previous delivery affecting : ?Status:?Acute ?Comment: plan RLTCS and BS scheduled for 11/14 with SM (4) Obesity affecting : ?Status:?Acute ?Comment: weekly nsts after 34 and growth US q 4~ 3051 grams-92% at 34 weeks Next US at 38 weeks (5) Abnormal ultrasound: ?Status:?Acute ?Comment: 99% at 20 week anatomy rescan 28-30 weeks:95%. (6) Hx of pre-eclampsia in prior , currently : ?Status:?Acute ?Comment: c section 38 weeks first (7) History of gestational hypertension: ?Status:?Acute ?Comment: 1st 20wks started labetalol (8) Supervision of high risk , antepartum: ?Status:?Acute ?Comment: PRR , VANCE 12/04/22 girl Lynda USAMA Emiliano Jona (9) : ?Status:?Acute ?Qualifiers: ?Weeks of gestation:?38 weeks? Qualified Code(s):?Z3A.38 - 38 weeks gestation of ?Comment: GBS negative, discussed genetic & carrier testing, pt had testing earlier before MADELEINE, nl 3 hr GTT ? ? ? Orders: Orders POC Urinalysis 2 Dip? (Clinic) Today ? ? After discussing the patient's diagnosis and treatment plan options, patient wishes to proceed with surgical management. I have discussed with the patient the risks, benefits, and alternatives of the procedure which include but are not limited to risks of anesthesia, bleeding, infection, possible damage to bowel, bladder, or surrounding vasculature which could lead to additional surgery to evaluate any complications. Patient agrees to procedure and wishes to proceed. ACOG/uptodate references given for additional information regarding procedure.
--- NOTE | 2022-11-11 16:09 | EX.PCM.OBRPT ---
Assessment & Plan (1) GERD (gastroesophageal reflux disease): COMMENT: improved GERD with 20mg Prilosec. will continue BID (2) Anemia affecting : COMMENT: add fe (3) Previous delivery affecting : COMMENT: plan RLTCS and BS scheduled for 11/14 with SM (4) Obesity affecting : COMMENT: weekly nsts after 34 and growth US q 4~ 3051 grams-92% at 34 weeks Next US at 38 weeks (5) Abnormal ultrasound: COMMENT: 99% at 20 week anatomy rescan 28-30 weeks:95%. (6) History of gestational hypertension: COMMENT: 1st 20wks started labetalol (7) Hx of pre-eclampsia in prior , currently : COMMENT: c section 38 weeks first (8) Supervision of high risk , antepartum: COMMENT: PRR , VANCE 12/04/22 girl Lynda Cummings Jona (9) : QUALIFIERS: Weeks of gestation: 38 weeks Qualified Code(s): Z3A.38 - 38 weeks gestation of COMMENT: GBS negative, discussed genetic & carrier testing, pt had testing earlier before MADELEINE, nl 3 hr GTT (10) Gestational hypertension: COMMENT: proceed with immediate delivery Maternal Data Information VANCE Calculator Estimated Delivery Date Method Current WG Current Estimate 11/19/22 LMP (Certain) 39w 2d Other Estimates 12/04/22 Ultrasound #1 37w 1d 11/22/22 Ultrasound #2 38w 6d Final VANCE Source: LMP Details Operative Information Date of Procedure: 11/11/22 Pre-Operative Diagnosis: Previous Post-Operative Diagnosis: same Indications for : Repeat Elective Indications Narrative: Surgeon: Adelaide Daniels MD Classification: Scheduled Procedure Type: low transverse (and BS) Type of Anesthesia: Spinal Special Medications: none Antibiotic Given: Ancef 2 grams IV x1 Drain: Anthony to straight drain Estimated Blood Loss: 600 Fluids Replaced: crystalloid Findings Description of Procedure: Spinal anesthesia was placed without difficulty. Anthony catheter was placed. The patient was placed in the dorsal supine position with leftward tilt. Patient was prepped and draped in the normal sterile fashion. Pfannenstiel skin incision was made with the scalpel and carried through to the underlying layer of fascia with the scalpel. Fascia was nicked in the midline and the incision extended laterally. The rectus bellies were dissected off superiorly and inferiorly with out complication both sharply and bluntly. The peritoneum was entered digitally. The incision was stretched and a low transverse uterine incision was made with the scalpel. The infant's head was delivered atraumatically followed by the anterior and posterior shoulders without complication the rest of the delivered. The cord was clamped and cut and the infant was handed off to awaiting nurse. The placenta was delivered spontaneously immediately following and was noted to be intact and have a three-vessel cord. The uterus was exteriorized cleared of all clots and debris, and the incision was closed in a single layer closure using #1 Monocryl. Patient had desired sterilization and was counseled preoperatively regarding irreversibility and permanency. Therefore bilateral fallopian tubes were elevated and transected across using a LigaSure device starting proximally to distally without complication the entire fallopian tubes were removed. The ovaries and fallopian tubes were noted to be within normal limits. The uterus was returned to the maternal abdomen and gutters were cleared of all clots and debris. The peritoneum was closed with 3-0 Monocryl in a running fashion. Fascia was closed with 0 PDS in a running fashion. Subcutaneous tissue was copiously irrigated and the skin was closed with 3-0 Monocryl in a subcuticular fashion. Mepilex dressing was applied without complication. Patient was taken to recovery in stable condition. Amniotic Membrane Rupture Type: Artificial Amniotic Fluid Description: Clear Placenta Disposition: [facility] Cord Vessel Description: 3 Vessels Delayed Cord Clamping: Yes Complications Risks of Surgery Discussed w/Patient: Bleeding, Infection, Need for Future C-Sections and Injury to surrounding structure(s) including bowel and bladder Vaginal Delivery Complication Complications: None Admit VTE Documentation VTE Present on Admission: No VTE Mechan Device Prophylaxis: SCD's Multi Select Codes Urinary/Genital Urinary/Genital CPT Codes: 00728 C/S+TL (bilateral salpingectomy) and 70275 Delivery [facility]
[2022-11-11] MEDS: Oxytocin 15 Units/NS 250ml 15 UNITS/250 ML IV.SOLN 83 UNITS IV (17:55)
[2022-11-11] MEDS: Ketorolac 30 MG/ML Syringe IV (17:58)
[2022-11-11] MEDS: HYDROmorphone 1 MG/ML Syringe IV (18:56)
[2022-11-11 19:40] LABS: Pathology Specimen OB SEE PATHOLOGY REPORT
[2022-11-11] MEDS: Lactated Ringers 1,000 ML 100 ML IV (20:57)
--- NOTE | 2022-11-11 23:42 | PCM.NY.DEL ---
Delivery Attendance Physical Exam Apgars/Vital Signs/Weight: Weight: 121.563 kg General Weight: 121.563 kg
[2022-11-12] MEDS: Ketorolac 30 MG/ML Syringe IV (00:07)
[2022-11-12 00:10] VITALS: BP 150/69; PULSE 79; RESP 16; TEMP 36.4; O2SAT 98
[2022-11-12] MEDS: 0.9% Saline Lock 10 ML Syringe IV (01:42)
[2022-11-12] MEDS: oxyCODONE 5 MG Tablet PO ×3 (01:52→14:01)
[2022-11-12 04:00] VITALS: BP 133/71; PULSE 68; RESP 14; TEMP 36.4; O2SAT 97
[2022-11-12] MEDS: Enoxaparin 40 MG/0.4 ML Syringe SC ×2 (04:08→16:47)
[2022-11-12] MEDS: Acetaminophen 500 MG Tablet 1000 MG PO ×4 (04:09→22:33)
[2022-11-12] MEDS: Naproxen 500 MG Tablet PO ×3 (06:23→22:33)
[2022-11-12 07:45] LABS: Hematocrit 28.2 % (37-47); Mean Corp Hgb Conc 31.9 g/dL (32-36); Mean Corpuscular Hgb 25.4 pg (27.0-32.0); Mean Corpuscular Volume 79.7 fL (81-99); Mean Platelet Vol. 9.8 fl (6.2-12.0); Platelet Count 187 K/mm3 (150-450); RBC Distribution Width CV 13.2 % (11.6-14.6); RBC Distribution Width SD 37.6 fl (35.1-43.9); Red Blood Count 3.54 M/mm3 (4.2-5.4); White Blood Count 10.1 K/mm3 (4.4-11.0)
[2022-11-12 08:30] VITALS: BP 129/71; PULSE 68; RESP 18; TEMP 36.2; O2SAT 99
--- NOTE | 2022-11-12 09:56 | PN.OBGYN_ITS ---
Subjective Subjective Patient doing well without complaints. Tolerating PO. Ambulating and voiding without difficulty. Feeding well. Denies chest pain, shortness of breath, calf pain/swelling, fevers, chills, lightheadedness. Objective Data Objective Data Vital Signs: Vital Signs Temp Pulse Resp BP Pulse Ox O2 Del Method 97.1 F L 68 18 129/71 H 99 Room Air 11/12/22 08:30 11/12/22 08:30 11/12/22 08:30 11/12/22 08:30 11/12/22 08:30 11/12/22 08:30 Oxygen Delivery Method Room Air Weight: 268 lb Body Mass Index (BMI) 45.7 Intake & Output: Intake and Output for Last 24 Hours 11/10/22 11/11/22 11/12/22 23:59 23:59 23:59 Intake Total 1365 / 1365 448.33 / 448.33 Output Total 1150 / 1150 250 / 250 Balance 215 / 215 198.33 / 198.33 Lab / Micro Data Result Diagrams: 11/12/22 07:16 11/11/22 10:25 Labs: Laboratory Results - last 24 hr 11/11/22 10:25: WBC 7.2, RBC 3.98 L, Hgb 9.8 L, Hct 31.6 L, MCV 79.4 L, MCH 24.6 L, MCHC 31.0 L, RDW Std Deviation 36.7, RDW Coeff of Brayden 13.0, Plt Count 224, MPV 9.7 11/11/22 10:25: U Random Total Protein 26.6 H, Urine Creatinine 178.00, Protein/Creatinin Ratio 149 11/11/22 10:25: Creatinine 0.63, Est GFR (MDRD) Af Amer 140, Est GFR (MDRD) Non- Af 116, Uric Acid 4.7, AST 16, ALT 20 11/11/22 10:25: Blood Type A POSITIVE, Antibody Screen NEGATIVE 11/11/22 12:40: Syphilis Total Ab Non-reactive 11/12/22 07:16: WBC 10.1, RBC 3.54 L, Hgb 9.0 L, Hct 28.2 L, MCV 79.7 L, MCH 25.4 L, MCHC 31.9 L, RDW Std Deviation 37.6, RDW Coeff of Brayden 13.2, Plt Count 187, MPV 9.8 ROS Constitutional Constitutional: Denies chills, fatigue, fever(s), poor appetite or weakness Eyes Eyes: Denies blurry vision, change in vision, seeing flashes or spots in vision ENT HEENT: Denies dizziness, headache(s), loss taste/smell or sore throat Cardiovascular Cardiovascular: Denies chest pain, dizziness, dyspnea, irregular heart rhythm, palpitations or rapid heart rate Respiratory/Chest Respiratory/Chest: Denies chest tightness, cough, dyspnea or breast pain Gastrointestinal Gastrointestinal: Denies abdominal pain, constipation or vomiting Genitourinary Genitourinary: Denies dysuria or flank pain Musculoskeletal Musculoskeletal: Denies difficulty walking, joint pain, limited range of motion or numbness Neurologic Neurologic: Denies abnormal movements, abnormal speech, dizziness, numbness, seizure-like activity or syncope Psychiatric Psychiatric: Denies anxiety, behavioral changes, change in appetite, confusion, depression or suicidal thoughts Physical Exam Const alert, oriented x3 and no apparent distress General Appearance: cooperative and comfortable Resp normal respiratory effort Cardio regular rate GI normal to inspection, nondistended, normoactive bowel sounds GI Narrative: uterus is firm below umbilicus Palpation: soft Back/Spine no CVA tenderness and thoraco-lumbar ROM normal Extremity normal to inspection, no clubbing, cyanosis or edema, no calf tenderness and no pedal edema Psych mental status grossly normal, thought process normal, cooperative, affect normal, speech normal, activity/motor behavior normal, denies homicidal ideation and denies suicidal ideation Assessment & Plan (1) Gestational hypertension: COMMENT: proceed with immediate delivery (2) GERD (gastroesophageal reflux disease): COMMENT: improved GERD with 20mg Prilosec. will continue BID (3) Anemia affecting : COMMENT: add fe (4) Previous delivery affecting : COMMENT: plan RLTCS and BS scheduled for 11/14 with SM (5) Obesity affecting : COMMENT: weekly nsts after 34 and growth US q 4~ 3051 grams-92% at 34 weeks Next US at 38 weeks PLAN: Plan s/p LTCS PPD # 1- pre-e 1. routine post care 2. breast feeding- support given 3. rh positive 4. rubella immune 5. dc planned for tomorrow at earliest
[2022-11-12] MEDS: Sertraline 100 MG Tablet PO (10:01)
[2022-11-12] MEDS: Senna/Docusate Sodium 1 Tablet PO (10:01)
[2022-11-12 14:00] VITALS: BP 125/70; PULSE 72; RESP 16; TEMP 36.3; O2SAT 97
--- NOTE | 2022-11-12 15:07 | CASEMGMT ---
Social Work Assessment Labor and Delivery Unit Date/Time of referral: 11/12/22 1:58am Referred by:Dr. Valero Date/Time of referral: 11/12/22 11am Reason for referral: SCN and anxiety History obtained from: MOB and FOB, spoke w/them in SCN Household composition: LALITO CHRISTIANSEN, four year old son and now baby Lynda Parent/Guardian status: MOB and FOB are guardians of both children Medical History: MOB: Gestational hypertension, GERD, anemia, obesity, anxiety. Baby: Respiratory distress at . Born 11/11/22 at 16:23, Apgars 5,7,9 at 1,5 and 10 minutes Educational Status: MOB has an associates degree, FOB has some college Financial Status: Non concerns. MOB stays home w/the children, FOB works as a steam plant operator w/[employer] Infant supplies: They have all needed supplies including crib, bassinet, car seat, clothing, diapers, wipes, bottles, formula. Childcare/Caregivers: MOB and FOB, Maternal grandparents help. Transportation: They have 2 vehicles Programs/Agencies involved: None Children's Services/Legal Issues: None Behavioral Health Issues: Substance abuse: MOB and FOB deny any substance abuse issues. Mental Health: FOB states has no mental health issues. MOB, reports anxiety, no Zoloft and says it helps a lot. MOB has been in counseling intermittently, most recently w/a virtual provider. MOB not in counseling at present and does not feel the need for counseling at this time. Family/Social Stressors: None Support systems: MOB's parents, FOB's parents depression/anxiety, shaken baby, Help Me Grow, safe sleeping, mental health resources: SW gave MOB information on all of these topics and reviewed w/MOB and FOB. SW reviewed in particular information on depression and anxiety w/pt, including warning signs. SW explained to MOB is she is having symptoms, to speak w/her FIELD CANE SCALE CLERK about it, and also consider counseling again. MOB states understanding. Assessment: MOB and FOB appropriate in conversation, answered all questions. FOB holding baby and feeding baby while SW speaking w/them, appropriate in care. Plan: Baby to go home w/FOB and MOB at discharge. No further social service needs anticipated at this time. JENARO Dong
[2022-11-12 16:57] VITALS: BP 148/81; PULSE 72; RESP 18; TEMP 36.3; O2SAT 97
[2022-11-12 21:02] VITALS: BP 148/76; PULSE 67; RESP 18; TEMP 36.1; O2SAT 99
[2022-11-13 02:35] VITALS: BP 139/76; PULSE 82; RESP 16; TEMP 36.2; O2SAT 96
[2022-11-13] MEDS: Acetaminophen 500 MG Tablet 1000 MG PO ×2 (04:48→11:07)
[2022-11-13] MEDS: Enoxaparin 40 MG/0.4 ML Syringe SC (04:48)
[2022-11-13] MEDS: Naproxen 500 MG Tablet PO (06:50)
[2022-11-13 08:53] VITALS: BP 143/84; PULSE 72; RESP 18; TEMP 36.4; O2SAT 98
[2022-11-13] MEDS: oxyCODONE 5 MG Tablet PO (09:12)
--- NOTE | 2022-11-13 09:41 | DS.PCM_ITS ---
Providers Date of Admission: 11/11/22 Primary Care Physician: Zoila Primary Care Phys Reason For Visit: REPEAT C SECTION Diagnosis Discharge Diagnosis (1) Gestational hypertension: Status: Acute Code(s): O13.9 - Gestational [-induced] hypertension without significant proteinuria, unspecified trimester (2) GERD (gastroesophageal reflux disease): Status: Acute Code(s): K21.9 - Gastro-esophageal reflux disease without esophagitis (3) Anemia affecting : Status: Acute Code(s): O99.019 - Anemia complicating , unspecified trimester (4) Previous delivery affecting : Status: Acute Code(s): O34.219 - Maternal care for unspecified type scar from previous deliver y (5) Obesity affecting : Status: Acute Code(s): O99.210 - Obesity complicating , unspecified trimester Plan s/p LTCS PPD # 1- pre-e 1. routine post care 2. breast feeding- support given 3. rh positive 4. rubella immune 5. dc planned for tomorrow at earliest Medications at Discharge Home Medications vit no.95-ferrous fumarate 28 mg-folic acid 800 mcg tablet () 1 ea PO DAILY vitamin 11/05/18 sertraline 100 mg tablet 100 mg PO DAILY axiety 10/08/22 Hospital Course Operations None and section Summary of Care Provided Minutes Spent on Discharge: 30 Hospital Course: The patient was admitted for a repeat section on 11/12/2022. There were no complications. On day #1 she was tolerating pain well and ambulating, on day #2 she was ready for discharge. Physical Exam HEENT normocephalic Resp normal respiratory effort and normal air movement GI soft to palpation, non-tender and non-distended Rectal Exam: other Other Details: Incision is clean, dry, and intact no CVA tenderness Extremity normal to inspection General Extremity: edema bilateral (trace ) Weight / BMI Weight Weight: 268 lb Body Mass Index (BMI) 45.7 ABG / Lab / Microbiology Data Result Diagrams: 11/12/22 07:16 11/11/22 10:25 D/C Instructions Discharge Diet: No restrictions May resume sexual activity in: 4-6 weeks Weight Bearing Status: Full weight bearing Call your doctor if your incision/area has: Continuous Slow Oozing, Sudden Increased Bleeding, Increased Pain/ Swelling, Increased Redness and Foul Smelling Discharge Call your doctor if you observe: Fever of 101 or Higher and Using more than 1 pad per hour Suture Line Care: Avoid Pulling/Pushing and Avoid Pinching/Bending Cleanse incision/area with: Soap & Water and Keep Dressing Clean & Dry Please Follow Up With: Tamara Fabian DO When: Call [phone] to make an appointment for an incision check in 1-2 weeks. Meaningful Use Info Meaningful Use Diagnoses (Choose all that apply): None applicable Discharge Plan Admission Admit Date/Time: 11/11/22 11:35 Attending Provider: Adelaide Daniels Primary Care Provider: Care Physician,No Primary Discharge Orders/Prescriptions Prescriptions: No Action PNV cmb#95-ferrous fumarate-FA [] 1 EACH tablet 1 ea PO DAILY sertraline 100 mg tablet 100 mg PO DAILY Referrals / Follow Up: Care Physician,No Primary [Primary Care Provider] -
--- NOTE | 2022-11-13 09:41 | DCINST_ITS ---
Discharge Instructions Diet Discharge Diet: No restrictions Activity Discharge Activity: May Not Drive (for 2 weeks or while taking narcotic pain medications.), May Shower and May Take a Tub Bath (in 7 days.) May resume sexual activity in: 4-6 weeks Weight Bearing Status: Full weight bearing Lifting Restrictions: 20 pounds Dressing / Incision Call your doctor if your incision/area has: Continuous Slow Oozing, Sudden Increased Bleeding, Increased Pain/ Swelling, Increased Redness and Foul Smelling Discharge Call your doctor if you observe: Fever of 101 or Higher and Using more than 1 pad per hour Suture Line Care: Avoid Pulling/Pushing and Avoid Pinching/Bending Cleanse incision/area with: Soap & Water and Keep Dressing Clean & Dry Follow Up Care Please Follow Up With: Tamara Fabian DO When: Call [phone] to make an appointment for an incision check in 1-2 weeks. Test Results: Test results from this visit will be discussed in further detail at your follow- up appointment, if applicable. Discharge Plan Admission Admit Date/Time: 11/11/22 11:35 Primary Reason for Your Visit: repeat section Attending Provider: Adelaide Daniels Primary Care Provider: Sudhakar PhysicianZoila Primary Discharge Orders/Prescriptions Prescriptions: New oxycodone-acetaminophen [Percocet] 5-325 mg tablet 1 tab PO Q4H PRN (Reason: pain) 7 Days Qty: 20 0RF Rx Instructions: 1-2 tabs q 4 hrs as needed for pain naproxen 500 mg tablet 500 mg PO BID PRN (Reason: pain) Qty: 30 0RF Continued PNV cmb#95-ferrous fumarate-FA [] 1 EACH tablet 1 ea PO DAILY sertraline 100 mg tablet 100 mg PO DAILY Referrals / Follow Up: Care Physician,Zoila Primary [Primary Care Provider] - Disposition Disposition (needs filled in before D/C Order can be placed): Home, Self Care
[2022-11-13] MEDS: Senna/Docusate Sodium 1 Tablet PO (11:06)
[2022-11-13] MEDS: Sertraline 100 MG Tablet PO (11:08)
== END 2022-11-13 11:50 | disposition home or self-care (01) | DRG 785 ==
LOC: WP 11:43 → WPOUT 11-14 10:39
PROVIDERS: Obstetrics & Gynecology; Admitting Provider Obstetrics & Gynecology; Referring Provider Obstetrics & Gynecology; Visit Provider Obstetrics & Gynecology
DX: O34.211 Maternal care for low transverse scar from previous cesarean delivery (principal); K21.9 Gastro-esophageal reflux disease without esophagitis; Z3A.38 38 weeks gestation of pregnancy; Z37.0 Single live birth; O13.4 Gestational [pregnancy-induced] hypertension without significant proteinuria, complicating childbirth; O99.62 Diseases of the digestive system complicating childbirth; O99.214 Obesity complicating childbirth; O99.02 Anemia complicating childbirth; Z28.310 Unvaccinated for COVID-19; Z28.21 Immunization not carried out because of patient refusal; Z79.899 Other long term (current) drug therapy; Z87.59 Personal history of other complications of pregnancy, childbirth and the puerperium; Z30.2 Encounter for sterilization
CPT/HCPCS: 36415; 59025; 59050; 82565; 82570; 84156; 84450; 84460; 84550; 85027; 86780; 86850; 86900; 86901; 88302; 99221; J7120; A4216; G0378; J2405

== ENCOUNTER 2022-11-28 14:15 | Outpatient (CLI) | payer BC, SELFPAY ==
[2022-11-28] VITALS (136 sets, daily range): BP systolic 102–205; BP diastolic 52–99; PULSE 78–134; RESP 14–20; TEMP 36.3–37.1; O2SAT 78–100; BMI 41.1
--- NOTE | 2022-11-28 14:36 | US_ITS ---
PROCEDURE: ABDOMINAL ULTRASOUND, RIGHT UPPER QUADRANT COMPARISONS: None. CLINICAL INDICATION: elevated liver enzymes TECHNIQUE: Real-time more-scale abdominal ultrasound. Limited color Doppler evaluation is performed. FINDINGS: Liver: Normal in size with diffusely and mildly increased echotexture. Appropriate hepatopetal flow is present in the main portal vein. Gallbladder: Normal wall thickness. Multiple shadowing gallstones. Sonographic Troy''s sign is absent. No pericholecystic fluid is present. Biliary Tree: Nondilated. Common bile duct measures 4 mm. Pancreas: Limited evaluation of the head and body is unremarkable. Right kidney: Normal in size and echogenicity. No hydronephrosis or stones. The right kidney measures 10.6 cm in long axis. No free fluid. US/Liver IMPRESSION: Fatty liver. Cholelithiasis without sonographic changes of acute cholecystitis. Electronically Signed: Alex Reese MD at 16:52 EDT ,
[2022-11-28] MEDS: NIFEdipine 30 MG Tablet PO (15:01)
[2022-11-28 15:17] LABS: Hematocrit 39.1 % (37-47); Hemoglobin 11.8 g/dL (12.0-15.0); Mean Corp Hgb Conc 30.2 g/dL (32-36); Mean Corpuscular Hgb 24.9 pg (27.0-32.0); Mean Corpuscular Volume 82.7 fL (81-99); Mean Platelet Vol. 9.3 fl (6.2-12.0); Platelet Count 358 K/mm3 (150-450); RBC Distribution Width CV 13.6 % (11.6-14.6); Red Blood Count 4.73 M/mm3 (4.2-5.4); White Blood Count 7.9 K/mm3 (4.4-11.0)
[2022-11-28] MEDS: Magnesium Sulfate 4gm/100mL 2 GM/50 ML IV.SOLN. IV (15:19)
[2022-11-28] MEDS: Magnesium Sulfate 4gm/100mL 4 GM/100 ML IV.SOLN. IV (15:20)
[2022-11-28] MEDS: hydrALAZINE 20 MG/ML Vial 10 MG IV ×2 (15:27→15:56)
[2022-11-28 15:29] LABS: Protein, Urine (Random) < 6.0 mg/dL (<11.9); Protein:Creat Ratio 403 mg/g CRE (0-200)
[2022-11-28 15:39] LABS: AST(SGOT) 139 U/L (15-37); Alanine Aminotransfer ALT/SGPT 204 U/L (13-56); Albumin, Serum 3.7 g/dL (3.2-5.0); Alkaline Phosphatase 193 U/L (45-117); Bilirubin, Direct 0.09 mg/dL (0.00-0.30); Creatinine, Serum 0.97 mg/dL (0.55-1.02); EST Glomerular Filtration Rate 70 mL/min (>60); Est Glom Filt Rate - Afr Amer 85 mL/min (>60); Estimated Creatinine Clearance 71.23 ml/min; Protein, Total 7.7 g/dL (6.4-8.2); Uric Acid 5.1 mg/dL (2.6-6.0)
[2022-11-28] MEDS: Magnesium Sulfate 20 GM/500 ML BAG IV (15:55)
[2022-11-28] MEDS: Labetalol (Prefilled) 20 MG/4 ML IV ×2 (16:27→16:46)
[2022-11-28] MEDS: Labetalol 100 MG/20 ML Vial 40 MG IV (16:48)
[2022-11-28] MEDS: Labetalol 100 MG Tablet PO (17:41)
[2022-11-29] VITALS (63 sets, daily range): BP systolic 98–139; BP diastolic 53–78; PULSE 64–149; RESP 16–18; TEMP 36.1–36.7; O2SAT 81–99
[2022-11-29] MEDS: Magnesium Sulfate 20 GM/500 ML BAG IV (01:10)
[2022-11-29] MEDS: Labetalol 100 MG Tablet PO (06:33)
--- NOTE | 2022-11-29 07:43 | OB.TRI.HP_ITS ---
HPI - General General Date of Admission: 11/28/22 Date of Service: 11/28/22 HPI Narrative LATE ENTRY_ patient seen 11/28/22 at 1730 MARIO MOREIRA, is a 32 F who presents with elevated blood pressures no headache or blurry vision. Patient is 2 weeks and came in for routine incision check and upon evaluation blood pressure was found to be severely elevated. Upon lab evaluation liver enzymes were noted to be 4 times normal but normal platelets. Patient was admitted then for short-term observation and blood pressure control. [facility] Medical History (Updated 11/29/22 @ 07:[address] Adelaide Daniels MD) Anxiety Gestational hypertension History of pre-eclampsia Hx of infertility Psoriasis Home Medications vit no.95-ferrous fumarate 28 mg-folic acid 800 mcg tablet () 1 ea PO DAILY vitamin 11/05/18 [History Last Taken 11/28/22 08:30] sertraline 100 mg tablet 100 mg PO DAILY axiety 10/08/22 [History Last Taken 11/28/22 08:30] ferrous sulfate 325 mg (65 mg iron) tablet 325 mg PO DAILY 11/28/22 [History Last Taken 11/28/22 08:30] nifedipine 30 mg tablet,extended release 24 hr (Procardia XL) 30 mg PO DAILY #30 tabs 11/28/22 [Rx Last Taken Unknown] Allergy/AdvReac Type Severity Reaction Status Date / Time amoxicillin Allergy Rash Verified 11/28/22 11:10 Surgical History (Updated 11/29/22 @ 07:[address] Adelaide Daniels MD) History of tonsillectomy Hx of section Social History adopted: No household members: spouse and children housing: house number of children: 1 current occupational status: unemployed pets and animals: Yes pets and animals: dog(s) history of recent travel: No sexually active: Yes Smoking Status: Never smoker alcohol intake: former details: occasional prior to substance use type: does not use well-balanced diet: daily or most days caffeine: No eating out: 1-3 times/week during the past year weight has: remained stable what type of physical activity do you participate in: walking cristiana/denominational: Nondenominational seatbelt use: always do you feel safe at home: Yes additional social history: 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 Date Name GA/Weeks Outcome Route Bth Weight Infant Gen Labor Lgth Anesthesia Del Locatn Provider FOB 11/05/18 Emiliano 38 live - full term 5#1oz Male s angelito [facility] Traci Tenorio 11/11/22 38 live - full term sp salena [facility] Dr. Daniels Delivery Date: 11/05/18 Last Updated by: Maryanne Pizano pre e Delivery Date: 11/11/22 Last Updated by: Nazia Barrera [facility] [place] Physical Exam Const alert, oriented x3 and no apparent distress HEENT Head and Scalp: normocephalic and atraumatic Eyes EOMs intact bilaterally Neck full ROM and no lymphadenopathy Chest inspection of chest normal Resp normal respiratory effort Neuro no focal motor deficits Motor Exam: clonus absent Assessment & Plan (1) Preeclampsia in period: COMMENT: 2 week postop readmit started magnesium sulfate, procardia 30mg XL and labetalol 100 mg po BID given after initial IV hydralazine and IV labetalol given. elevated LFTs. hepatitis panel drawn. nl platelets. RUQ US ordered. (2) Cholelithiasis: COMMENT: seen on US recommend fu with PCP after period (3) Fatty liver: COMMENT: seen on US recommend fu with PCP after period PLAN: Plan admit see a/p comments for plan info. Charges/Coding Visit Charges OBSV E&M: 34885 Observ/hosp same date L3
--- NOTE | 2022-11-29 07:59 | PCM.PN.OB ---
Subjective Subjective Patient doing well without complaints. Tolerating PO. Ambulating and voiding without difficulty. Denies chest pain, shortness of breath, calf pain/swelling, fevers, chills,headache, lightheadedness. Objective Data Objective Data Vital Signs: Vital Signs Temp Pulse Resp BP Pulse Ox O2 Del Method 98.0 F 82 16 122/67 H 98 Room Air 11/29/22 07:32 11/29/22 07:32 11/29/22 07:32 11/29/22 07:32 11/29/22 07:32 11/29/22 07:32 Oxygen Delivery Method Room Air Weight: 240 lb Body Mass Index (BMI) 41.1 Intake & Output: Intake and Output for Last 24 Hours 11/27/22 11/28/22 11/29/22 23:59 23:59 23:59 Intake Total 535 / 535 552.5 / 552.5 Output Total 425 / 425 300 / 300 Balance 110 / 110 252.5 / 252.5 Lab / Micro Data Attestation: I reviewed the patient's lab results. Result Diagrams: 11/28/22 15:00 11/29/22 07:10 Labs: Laboratory Results - last 24 hr 11/28/22 15:00: WBC 7.9, RBC 4.73, Hgb 11.8 L, Hct 39.1, MCV 82.7, MCH 24.9 L, MCHC 30.2 L, RDW Std Deviation 41.0, RDW Coeff of Brayden 13.6, Plt Count 358, MPV 9.3 11/28/22 15:00: U Random Total Protein < 6.0, Urine Creatinine 14.40, Protein/Creatinin Ratio 403 H 11/28/22 15:00: Creatinine Cancelled, Estim Creat Clear Calc Cancelled, Est GFR (MDRD) Af Amer Cancelled, Est GFR (MDRD) Non-Af Cancelled, Uric Acid Cancelled, AST Cancelled, ALT Cancelled 11/28/22 15:00: Creatinine 0.97, Estim Creat Clear Calc 71.23, Est GFR (MDRD) Af Amer 85, Est GFR (MDRD) Non-Af 70, Uric Acid 5.1, Total Bilirubin 0.40, Direct Bilirubin 0.09, AST 139 H, ALT 204 H, Alkaline Phosphatase 193 H, Total Protein 7.7, Albumin 3.7, Globulin 4.0 11/29/22 07:10: WBC Cancelled, Corrected WBC Cancelled, RBC Cancelled, Hgb Cancelled, Hct Cancelled, MCV Cancelled, MCH Cancelled, MCHC Cancelled, RDW Std Deviation Cancelled, RDW Coeff of Brayden Cancelled, Plt Count Cancelled, MPV Cancelled, Immature Gran % (Auto) Cancelled, Neut % (Auto) Cancelled, Lymph % (Auto) Cancelled, Powell % (Auto) Cancelled, Eos % (Auto) Cancelled, Baso % (Auto) Cancelled, Absolute Neuts (auto) Cancelled, Absolute Lymphs (auto) Cancelled, Total Counted Cancelled, Neutrophils % (Manual) Cancelled, Band Neutrophils % Cancelled, Lymphocytes % (Manual) Cancelled, Monocytes % (Manual) Cancelled, Eosinophils % (Manual) Cancelled, Basophils % (Manual) Cancelled, Metamyelocytes % Cancelled, Myelocytes % Cancelled, Promyelocytes % Cancelled, Blast Cells % Cancelled, Plasma Cell % (Manual) Cancelled, Other Cells % Cancelled, Nucleated RBC % Cancelled, Nucleated RBCs/100 WBC Cancelled, Differential Comment Cancelled, Diff Path Review Cancelled, Hypersegmented Neuts Cancelled, Atypical Lymphocytes Cancelled, Reactive Lymphocytes Cancelled, Smudge Cells Cancelled, Toxic Granulation Cancelled, Toxic Vacuolation Cancelled, Dohle Bodies Cancelled, Sophie Rods Cancelled, Platelet Estimate Cancelled, Plt Morphology Comment Cancelled, RBC Morphology Cancelled, Polychromasia Cancelled, Hypochromasia Cancelled, Poikilocytosis Cancelled, Basophilic Stippling Cancelled, Anisocytosis Cancelled, Microcytosis Cancelled, Macrocytosis Cancelled, Spherocytes Cancelled, Sickle Cells Cancelled, Target Cells Cancelled, Tear Drop Cells Cancelled, Ovalocytes Cancelled, Stomatocytes Cancelled, Delatorre-Kenneth Bodies Cancelled, [place] Cells Cancelled, Bite Cells Cancelled, Crenated Cell Cancelled, Acanthocytes (Spur) Cancelled, Rouleaux Cancelled, Schistocytes Cancelled Radiography Diagnostic Testing: Radiology Impression Liver Ultrasound 11/28/22 14:36 IMPRESSION: Fatty liver. Cholelithiasis without sonographic changes of acute cholecystitis. Electronically Signed: Alex Reese MD at 16:52 EDT Reading Location ID and State: [address] [place] [address] Tel , Service support , ROS Constitutional Constitutional: Reports systems reviewed and no addt'l complaints, except as documented; Denies anorexia or headache(s) Cardiovascular Cardiovascular: Reports systems reviewed and no addt'l complaints, except as documented; Denies dizziness, dyspnea, lightheadedness, nausea or tachypnea Respiratory/Chest Respiratory/Chest: Reports systems reviewed and no addt'l complaints, except as documented; Denies cough, dyspnea, shortness of breath at rest or tachypnea Gastrointestinal Gastrointestinal: Reports systems reviewed and no addt'l complaints, except as documented; Denies abdominal pain, constipation, nausea or vomiting Genitourinary Genitourinary: Reports systems reviewed and no addt'l complaints, except as documented; Denies burning urination, difficulty urinating, dysuria, urinary frequency or urinary incontinence Musculoskeletal Musculoskeletal: Reports systems reviewed and no addt'l complaints, except as documented Integumentary Integumentary: Reports systems reviewed and no addt'l complaints, except as documented Neurologic Neurologic: Reports systems reviewed and no addt'l complaints, except as documented; Denies abnormal speech, dizziness or headache(s) Psychiatric Psychiatric: Reports systems reviewed and no addt'l complaints, except as documented Endocrine Endocrinology: Reports systems reviewed and no addt'l complaints, except as documented Hematologic/Lymphatic Hematologic/Lymphatic: Reports systems reviewed and no addt'l complaints, except as documented Physical Exam Const alert, oriented x3 and no apparent distress Neck full ROM Resp normal respiratory effort, normal air movement, no retractions and clear to auscultation bilaterally Effort and Inspection: able to speak in complete sentences and symmetric chest movement; Negative for respiratory distress Cardio regular rate and regular rhythm GI soft to palpation Bladder / Kidney Exam: bladder normal to palpation Uterus Palpation: uterus fundus firm Extremity normal to inspection, full ROM, no calf tenderness and no pedal edema Neuro moves all extremities Speech: speech normal Motor Exam: clonus present 1 beat Deep Tendon Reflexes: Rt Biceps (C5, C6): 2+, Lt Biceps (C5, C6): 2+, Rt Brachioradialis (C6): 2+, Lt Brachioradialis (C6): 2+, Rt Patellar (L4): 1+ and Lt Patellar (L4): 1+ Psych mental status grossly normal, thought process normal and cooperative Assessment & Plan (1) Preeclampsia in period: COMMENT: 2 week postop readmit started magnesium sulfate, procardia 30mg XL and labetalol 100 mg po BID given after initial IV hydralazine and IV labetalol given. elevated LFTs. hepatitis panel drawn. nl platelets. RUQ US ordered. PLAN: redraw AM labs If labs stabilizing- D/C mag monitor vital signs for 4 hours Nurse to call provider for labs. Possible D/C home with BP monitoring cuff and close follow up in office Discussed with Dr Daniels and she agrees with plan of care (2) Cholelithiasis: COMMENT: seen on US recommend fu with PCP after period Charges/Coding Multi Select Codes Urinary/Genital Urinary/Genital CPT Codes: No Charge
[2022-11-29 08:04] LABS: ALB/GLOB Ratio 0.9 RATIO (0.9-2.4); AST(SGOT) 69 U/L (15-37); Alanine Aminotransfer ALT/SGPT 145 U/L (13-56); Albumin, Serum 3.3 g/dL (3.2-5.0); Alkaline Phosphatase 162 U/L (45-117); Anion Gap 7 (5-15); BUN 10 mg/dL (7-18); BUN/Creat Ratio 12.5 RATIO (10-20); Chloride 107 mmol/L (98-107); EST Glomerular Filtration Rate 87 mL/min (>60); Est Glom Filt Rate - Afr Amer 106 mL/min (>60); Estimated Creatinine Clearance 86.37 ml/min; Globulin 3.6 g/dL (2.2-4.2); Glucose 115 mg/dL (74-106); Potassium 3.5 mmol/L (3.5-5.1); Protein, Total 6.9 g/dL (6.4-8.2); Sodium Level 139 mmol/L (136-145)
[2022-11-29 08:11] LABS: Absolute Lymphocyte Count 2.18 X10^3/uL (0.83-4.51); Absolute Neutrophil Count 3.9 X10^3/uL (2.0-7.7); Basophil# 0.03 X10^3/uL; Basophil% 0.5 % (0-1); Eosinophil# 0.16 X10^3/uL; Eosinophils% 2.4 % (0-5); Hemoglobin 10.9 g/dL (12.0-15.0); Lymphocyte # 2.18 X10^3/ul (0.83-4.51); Lymphocyte % 33.1 % (19-41); Mean Corp Hgb Conc 30.3 g/dL (32-36); Mean Corpuscular Hgb 24.7 pg (27.0-32.0); Mean Corpuscular Volume 81.4 fL (81-99); Mean Platelet Vol. 9.1 fl (6.2-12.0); Monocyte# 0.34 X10^3/uL; Monocyte% 5.2 % (0-10); NRBC Flagged by Analyzer 0 % (0-5); Neutrophil # 3.85 X10^3/uL (2.7-7.7); Neutrophil % 58.5 % (47-70); Platelet Count 324 K/mm3 (150-450); RBC Distribution Width CV 14.1 % (11.6-14.6); Red Blood Count 4.42 M/mm3 (4.2-5.4); White Blood Count 6.6 K/mm3 (4.4-11.0)
[2022-11-29] MEDS: Sertraline 100 MG Tablet PO (10:30)
== END 2022-11-29 13:20 | disposition home or self-care (01) ==
LOC: WPOUT 14:30 → WP 14:30
PROVIDERS: Referring Provider Obstetrics & Gynecology; Visit Provider Obstetrics & Gynecology
DX: O14.95 Unspecified pre-eclampsia, complicating the puerperium (principal); O99.63 Diseases of the digestive system complicating the puerperium; O99.345 Other mental disorders complicating the puerperium; O26.63 Liver and biliary tract disorders in the puerperium; K76.0 Fatty (change of) liver, not elsewhere classified; F41.9 Anxiety disorder, unspecified; K80.20 Calculus of gallbladder without cholecystitis without obstruction; Z79.899 Other long term (current) drug therapy
CPT/HCPCS: 96365; 96375 ×4; 96366; 36415; 76705; 80053; 80076; 82565; 82570; 84156; 84550; 85025; 85027; 94760; 96367; 99221; G0378

== ENCOUNTER → 2022-11-28 | Outpatient (CLI) | payer BC, SELFPAY ==
[2022-11-28 12:19] LABS: Absolute Lymphocyte Count 2.39 X10^3/uL (0.83-4.51); Absolute Neutrophil Count 3.5 X10^3/uL (2.0-7.7); Basophil# 0.04 X10^3/uL; Basophil% 0.6 % (0-1); Eosinophil# 0.15 X10^3/uL; Eosinophils% 2.3 % (0-5); Hematocrit 36.9 % (37-47); Hemoglobin 11.2 g/dL (12.0-15.0); Lymphocyte # 2.39 X10^3/ul (0.83-4.51); Mean Corp Hgb Conc 30.4 g/dL (32-36); Mean Corpuscular Hgb 24.6 pg (27.0-32.0); Mean Corpuscular Volume 81.1 fL (81-99); Mean Platelet Vol. 9.1 fl (6.2-12.0); Monocyte# 0.33 X10^3/uL; Monocyte% 5.1 % (0-10); NRBC Flagged by Analyzer 0 % (0-5); Neutrophil # 3.54 X10^3/uL (2.7-7.7); Neutrophil % 54.8 % (47-70); Platelet Count 331 K/mm3 (150-450); RBC Distribution Width CV 13.7 % (11.6-14.6); Red Blood Count 4.55 M/mm3 (4.2-5.4); White Blood Count 6.5 K/mm3 (4.4-11.0)
[2022-11-28 12:33] LABS: Protein, Urine (Random) 22.5 mg/dL (<11.9); Protein:Creat Ratio 146 mg/g CRE (0-200)
[2022-11-28 13:15] LABS: ALB/GLOB Ratio 0.9 RATIO (0.9-2.4); AST(SGOT) 170 U/L (15-37); Alanine Aminotransfer ALT/SGPT 216 U/L (13-56); Albumin, Serum 3.6 g/dL (3.2-5.0); Alkaline Phosphatase 191 U/L (45-117); Anion Gap 9 (5-15); BUN 13 mg/dL (7-18); Calcium,Total 9.1 mg/dL (8.5-10.1); Chloride 107 mmol/L (98-107); Creatinine, Serum 0.93 mg/dL (0.55-1.02); EST Glomerular Filtration Rate 74 mL/min (>60); Est Glom Filt Rate - Afr Amer 89 mL/min (>60); Glucose 92 mg/dL (74-106); Potassium 3.8 mmol/L (3.5-5.1); Protein, Total 7.6 g/dL (6.4-8.2); Sodium Level 140 mmol/L (136-145)
== END | disposition home or self-care (01) ==
LOC: LAB 11:52
PROVIDERS: Referring Provider Nurse Practitioner Women's Health; Visit Provider Nurse Practitioner Women's Health
DX: I10 Essential (primary) hypertension (principal)
CPT/HCPCS: 36415; 80053; 82570; 84156; 85025

== ENCOUNTER 2022-12-01 12:30 | Outpatient (CLI) | payer BC, SELFPAY ==
[2022-12-01 12:45] VITALS: BP 173/94; PULSE 64; PULSE 73; O2SAT 92; O2SAT 99
[2022-12-01] MEDS: 0.9% Saline Lock 10 ML Syringe IV (12:55)
[2022-12-01 13:00] VITALS: BMI 41.1
[2022-12-01 13:01] VITALS: BP 177/91; PULSE 62
[2022-12-01] MEDS: NIFEdipine 10 MG Capsule PO (13:06)
[2022-12-01 13:15] LABS: Hematocrit 36.6 % (37-47); Hemoglobin 10.9 g/dL (12.0-15.0); Mean Corp Hgb Conc 29.8 g/dL (32-36); Mean Corpuscular Hgb 24.5 pg (27.0-32.0); Mean Corpuscular Volume 82.4 fL (81-99); Mean Platelet Vol. 9.7 fl (6.2-12.0); Platelet Count 351 K/mm3 (150-450); RBC Distribution Width SD 41.3 fl (35.1-43.9); Red Blood Count 4.44 M/mm3 (4.2-5.4); White Blood Count 5.9 K/mm3 (4.4-11.0)
[2022-12-01 13:24] LABS: Protein, Urine (Random) 23.2 mg/dL (<11.9); Protein:Creat Ratio 261 mg/g CRE (0-200)
[2022-12-01 13:27] VITALS: BP 131/73; PULSE 92
[2022-12-01 13:28] LABS: Partial Thromboplast Time 27.6 Seconds (24.1-36.2); Prothrombin Time (Protime)PT. 13.6 SECONDS (11.7-14.9)
[2022-12-01 13:30] LABS: AST(SGOT) 46 U/L (15-37); Alanine Aminotransfer ALT/SGPT 145 U/L (13-56); Creatinine, Serum 0.84 mg/dL (0.55-1.02); EST Glomerular Filtration Rate 82 mL/min (>60); Est Glom Filt Rate - Afr Amer 99 mL/min (>60); Estimated Creatinine Clearance 82.26 ml/min; Uric Acid 4.9 mg/dL (2.6-6.0)
--- NOTE | 2022-12-01 17:40 | OB.TRI.HP_ITS ---
HPI - General HPI Narrative MARIO MOREIRA, is a 32 F who presents with elevated blood pressures at home. She has been getting monitoring due to preeclampsia in the period and elevated liver enzymes and then today pressures were in the 160s to 170s over 100s. She denies any headaches or blurry vision admits no new pelvic pain and is recovering well from the . [facility] Medical History (Updated 12/01/22 @ 17:[address] Adelaide Daniels MD) Anxiety Gestational hypertension History of pre-eclampsia Hx of infertility Psoriasis Home Medications vit no.95-ferrous fumarate 28 mg-folic acid 800 mcg tablet () 1 ea PO DAILY vitamin 11/05/18 [History Last Taken 12/01/22 08:00] sertraline 100 mg tablet 100 mg PO DAILY axiety 10/08/22 [History Last Taken 12/01/22 08:00] ferrous sulfate 325 mg (65 mg iron) tablet 325 mg PO DAILY 11/28/22 [History Last Taken 12/01/22 08:00] nifedipine 30 mg tablet,extended release 24 hr (Procardia XL) 30 mg PO DAILY #30 tabs 11/28/22 [Rx Last Taken 12/01/22 09:30] labetalol 100 mg tablet 100 mg PO BID 12/01/22 [History Last Taken 12/01/22 11:00] Allergy/AdvReac Type Severity Reaction Status Date / Time amoxicillin Allergy Rash Verified 12/01/22 13:02 Surgical History (Updated 11/29/22 @ 07:[address] Adelaide Daniels MD) History of tonsillectomy Hx of section Social History adopted: No household members: spouse and children housing: house number of children: 1 current occupational status: unemployed pets and animals: Yes pets and animals: dog(s) history of recent travel: No sexually active: Yes Smoking Status: Never smoker alcohol intake: former details: occasional prior to substance use type: does not use well-balanced diet: daily or most days caffeine: No eating out: 1-3 times/week during the past year weight has: remained stable what type of physical activity do you participate in: walking cristiana/yarsani: Hoahaoism seatbelt use: always do you feel safe at home: Yes 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 History 2 Elective abortions Hx Para 2 Spontaneous abortions Hx # Term Pregnancies Ectopic pregnancies Hx # Pregnancies Multiple births # of living children 2 Past Pregnancies Del. Date Name GA/Weeks Outcome Route Bth Weight [facility]18 Emiliano 38 live - full term 5#1oz Male s angelito [facility] Traci Tenorio 11/11/22 38 live - full term sp inal [facility] Dr. Daniels Delivery Date: 11/05/18 Last Updated by: Maryanne Pizano pre e Delivery Date: 11/11/22 Last Updated by: Nazia Barrera [facility] Physical Exam Const alert, oriented x3 and no apparent distress HEENT Head and Scalp: normocephalic and atraumatic Eyes EOMs intact bilaterally Neck full ROM and no lymphadenopathy Chest inspection of chest normal Resp normal respiratory effort Neuro no focal motor deficits Motor Exam: clonus absent Assessment & Plan (1) Preeclampsia in period: COMMENT: 2 week postop readmit started magnesium sulfate, procardia 60mg XL and labetalol 200 mg po BID given after initial IV hydralazine and IV labetalol given. elevated LFTs. hepatitis panel drawn. nl platelets. RUQ US ordered. PLAN: Plan Repeat labs show stable liver enzymes and blood pressures controlled with additional dose of Procardia. Will increase overall dose to 60 mg twice daily and continue 200 mg labetalol twice daily. Follow-up in office in 1 week. Charges/Coding Multi Select Codes Visit Charges Office Visit/Consults: 18129 OV L3 Est
== END 2022-12-01 13:55 | disposition home or self-care (01) ==
LOC: WPOUT 12:34 → WP 12:37
PROVIDERS: Referring Provider Obstetrics & Gynecology; Visit Provider Obstetrics & Gynecology
DX: O14.95 Unspecified pre-eclampsia, complicating the puerperium (principal); Z3A.38 38 weeks gestation of pregnancy
CPT/HCPCS: 36415; 82565; 82570; 84156; 84450; 84460; 84550; 85027; 85610; 85730; A4216

== ENCOUNTER → 2023-01-05 | Outpatient (CLI) | payer BC, SELFPAY ==
[2023-01-07 13:08] LABS: Hepatitis B Core Ab Total Negative (Negative); QNTFERON TB Mitogen Value > 10.00 IU/mL (.); QNTFERON TB Nil Value 0 IU/mL (.); QNTFERON TB1+ Ag Value 0 IU/mL (.); QNTFERON TB2+ Ag Value 0 IU/mL (.); QNTIFERON TB Positive Criteria Negative (Negative)
== END | disposition home or self-care (01) ==
LOC: MTLAB 14:09
PROVIDERS: Referring Provider Physician Assistant; Visit Provider Physician Assistant
DX: L40.0 Psoriasis vulgaris (principal); Z79.899 Other long term (current) drug therapy
CPT/HCPCS: 36415; 86480; 86704

== ENCOUNTER → 2023-09-08 | Outpatient (CLI) | payer BC, SELFPAY ==
[2023-09-12 10:09] LABS: QNTFERON TB Mitogen Value > 10.00 IU/mL (.); QNTFERON TB Nil Value 0 IU/mL (.); QNTFERON TB1+ Ag Value 0.03 IU/mL (.); QNTFERON TB2+ Ag Value 0.02 IU/mL (.); QNTIFERON TB Positive Criteria Negative (Negative)
== END | disposition home or self-care (01) ==
LOC: MTLAB 15:41
PROVIDERS: Referring Provider Physician Assistant; Visit Provider Physician Assistant
DX: L40.0 Psoriasis vulgaris (principal); Z79.899 Other long term (current) drug therapy
CPT/HCPCS: 36415; 86480